=== PATIENT | male | born 1945 | race Caucasian/White ===

== ENCOUNTER 2023-05-13 13:01 | Observation (INO) ==
[2023-05-13 13:24] LABS: Appearance Urine Clear (Clear); Bilirubin Urine Negative (Negative); Blood Urine Negative (Negative); Color Urine Yellow; Glucose Urine UA Negative (Negative); Ketones Urine Negative (Negative); Leukocyte Esterase Urine Negative (Negative); Nitrite Urine Negative (Negative); Protein Urine Negative (Negative); Specific Gravity Urine 1.021 (1.000-1.030); Urobilinogen Urine Negative (Negative)
[2023-05-13 13:52] LABS: Basophils # (auto) 0.06 K/uL (0-0.2); Basophils % (auto) 0.7 %; Eosinophils # (auto) 0.14 K/uL (0-0.50); Eosinophils % (auto) 1.6 %; Hematocrit (blood only) 43.4 % (42.0-52.0); Hemoglobin 14.8 g/dl (14.0-18.0); Immature Granulocytes # (auto) 0.02 K/uL (0.01-0.20); Immature Granulocytes % (auto) 0.2 %; Lymphocytes # (auto) 1.96 K/uL (1.2-3.4); Lymphocytes % (auto) 23.1 %; Mean Corpuscular Hemoglobin 29.9 pg (25.0-34.0); Mean Corpuscular Hgb Conc 34.1 g/dL (32.0-36.0); Mean Corpuscular Volume 87.7 fL (80.0-100.0); Mean Platelet Volume 9.6 fL (9.4-12.4); Monocytes # (auto) 0.73 K/uL (0.11-0.59); Monocytes % (auto) 8.6 %; Neutrophils # (auto) 5.59 K/uL (1.40-6.50); Neutrophils % (auto) 65.8 %; Platelet Count 330 K/uL (130-400); RDW Coefficient of Variation 12.6 % (11.5-14.5); RDW Standard Deviation 40.2 fL (36.4-46.3); Red Blood Count 4.95 M/uL (4.70-6.10)
[2023-05-13 14:07] LABS: Alanine Aminotransferase 18 U/L (7-52); Albumin Globulin Ratio 1.4 (0.9-2); Albumin Level 4.2 gm/dl (3.4-5.0); Aspartate Aminotransferase 26 U/L (13-39); Bilirubin,Total 1.1 mg/dl (0.2-1.0); Blood Urea Nitrogen 19 mg/dl (6-23); Creatinine Clr Calc Pharmacy 57.2 ml/min; Globulin 2.9 gm/dl (2.5-4.0); Glucose 114 mg/dl (70-99(Fasting)); Sodium 136 mmol/L (136-145); Total Protein 7.1 gm/dl (6.0-8.3)
[2023-05-13 14:16] LABS: Alkaline Phosphatase 75 U/L (34-104); Anion Gap 7 (3-11); BUN Creatinine Ratio 16.2 (10-20); Calcium 9.4 mg/dl (8.6-10.3); Carbon Dioxide 24 mmol/L (21-32); Chloride 105 mmol/L (98-107); Est GFR (African American) 68.3 ml/min; Est GFR (Non-African American) 58.9 ml/min; Magnesium 1.3 mg/dl (1.7-2.4); Potassium 4.8 mmol/L (3.5-5.1)
[2023-05-13 14:22] LABS: Troponin I High Sensitivity 2.4 pg/ml (0-20)
[2023-05-13] MEDS ORDERED: MAGNESIUM SULFATE / D5W 1 GM/100 ML BAG IV STA (14:22)
--- NOTE | 2023-05-13 14:38 | XRay Report ---
SINGLE VIEW CHEST CLINICAL HISTORY: Change in mental status. FINDINGS: An AP, portable, upright chest radiograph is obtained. No prior studies are available for c omparison at the time of dictation. The heart is top normal for projection noting atherosclerotic adam cification of the thoracic aorta. There is an indeterminant fullness of the left hilum. There is elev ation of the right hemidiaphragm. Scarring/atelectasis is noted at the lung bases. No airspace consol idation or large pleural effusion is identified. No pneumothorax is seen. The skeletal structures are osteopenic. The bony thorax is grossly intact. IMPRESSION: 1. No acute cardiopulmonary abnormality is identified. 2. There is nonspecific fullness of the left hilum which may represent normal vascular structures. A contrast-enhanced chest CT is recommended to exclude underlying mass lesion or lymphadenopathy. ACT 112: Negative or not required by law. Electronically signed by: Zack Emery M.D. 05/13/2023 2:36 PM
--- NOTE | 2023-05-13 14:47 | CT Scan Report ---
CT SCAN OF THE BRAIN WITHOUT IV CONTRAST CLINICAL HISTORY: Change in mental status. COMPARISON STUDY: No priors. TECHNIQUE: Unenhanced axial CT scan of the brain is performed from the vertex to the skull base. A do se lowering technique was utilized adhering to the principles of ALARA. 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 There is no hemorrhage, mass effect, or evidence of acute territorial isc hemia by CT criteria. Sampson-white matter differentiation is preserved. No extra-axial fluid collection is seen. Ventricles, sulci, cisterns: Prominent secondary to involutional change. Intracranial vasculature: There is atherosclerotic calcification of the cavernous carotid and vertebr al arteries. Calvarium: Unremarkable. Sinuses and mastoids: The visualized paranasal sinuses are clear. There is trace right mastoid effusi on. The left mastoid air cells are well pneumatized. Orbits: The bony orbits are grossly intact. There are bilateral ocular lens implants. IMPRESSION: There is no hemorrhage, mass effect, or evidence of acute territorial ischemia by CT kellen real. ACT 112: Negative or not required by law. Electronically signed by: Zack Emery M.D. 05/13/2023 2:44 PM
--- NOTE | 2023-05-13 15:00 | Emergency Department Note ---
History of Present Illness General Chief complaint: Altered Mental Status Stated complaint: HALLUCINATIONS Time Seen by Provider: 05/13/23 13:52 History of Present Illness Maximum Pain Intensity: 0 This is a 78-year-old male presenting to the emergency department accompanied by his daughters for evaluation of change in mental status over the past several weeks. The patient lives in the [place] area and his a few months ago. Over the past several weeks the patient has been acting very odd and atypical from baseline. He is often describing seeing people either jogging on the road, or crawling into his mailbox. The patient describes these events very vividly in detail. He is able to walk through his logic and thinking process when these small people show up at his house. At times these people will sit in his garage, and crawl into the upholstery of his car. The patient does not have any recent fevers or chills. No illness or trauma. Sleep may be slightly changed from the time of his passing away. No recent medication changes. The patient states that the people that he is seeing and talking to are very friendly and do not threaten him or ask him to do things that are not safe. His daughters state the neighbor has seen him talking to people in the yard, when no one was there. He has approached the neighbor's house a few times asking for help with the small people. The patient did have MRI of his brain in [place] recently that showed senescent changes per the daughters. The daughters do seem quite reasonable and concerned. The patient himself offers no complaints. No pain. No infectious symptoms are reported. Home Medications Medication Instructions Recorded Confirmed Type ascorbic acid (vitamin C) 250 mg 0 mg PO DAILY 05/13/23 05/13/23 History tablet (Vitamin C) brimonidine 0.2 % eye drops 1 drp OPB TID 05/13/23 05/13/23 History cholecalciferol (vitamin D3) 25 25 mcg PO DAILY 05/13/23 05/13/23 History mcg (1,000 unit) tablet (Vitamin D3) dorzolamide 2 % eye drops 1 drp OPB TID 05/13/23 05/13/23 History dulaglutide 3 mg/0.5 mL 3 mg subcut WE 05/13/23 05/13/23 History subcutaneous pen injector (Trulicity) enalapril maleate 20 mg tablet 20 mg PO BID 05/13/23 05/13/23 History metformin 500 mg tablet 500 mg PO TID 05/13/23 05/13/23 History potassium chloride 20 mEq 20 meq PO DAILY 05/13/23 05/13/23 History tablet,extended release(part/cryst) (Klor-Con M) simvastatin 40 mg tablet 40 mg PO HS 05/13/23 05/13/23 History triamcinolone acetonide 0.1 % 1 applic topical DIRECTED PRN 05/13/23 05/13/23 History topical cream .Itching Allergies Allergy/AdvReac Type Severity Reaction Status Date / Time No Known Allergies Allergy Verified 05/13/23 17:15 Past Med/Surg History Medical History Glaucoma History of diverticulitis Hypertension T2DM (type 2 diabetes mellitus) Visual hallucinations Surgical History History of partial colectomy Social History (Updated 05/14/23 @ 10:46 by Hay Sanchez MD) Smoking Status: Former smoker Tobacco Type: Cigarettes Hx Alcohol Use: Yes Alcohol Intake Frequency: Monthly or Less Hx Substance Use: No Preferred Language: Singaporean Communication Ability: Effective Site Inspector Required: No Beliefs That Will Affect Care: None Current Living Situation: Alone current occupational status: employed 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 Vital signs stable. GENERAL: Elderly white male who is speaking in full sentences and appears in no acute distress. He is cooperative with the examination. HEAD: Normocephalic atraumatic. NECK: Supple without nuchal rigidity. No lymphadenopathy. No thyromegaly. Cervical spine is nontender. HEART: Regular rate and rhythm without murmurs gallops or rubs. LUNGS: Clear to auscultation bilaterally without wheezes, rales or rhonchi. No retractions or accessory muscle use. ABDOMEN: Positive normal bowel sounds x 4. Soft, nontender, without masses or organomegaly. No guarding or rebound tenderness. MUSCULOSKELETAL: No muscle atrophy, erythema, or edema noted. Full range of motion in all extremities. NEURO: Patient was alert and oriented to person place and time. CN II through XII grossly intact. GCS 15. SKIN: The skin was without rashes, erythema, edema, or bruising. Capillary refill less than 2 seconds. Course Administered Medications Discontinued Medications Brimonidine Tartrate (Brimonidine Tartrate 0.2% 5ml) 1 drops OPB TID JACKELIN Stop: 06/12/23 20:59 Last Admin: 05/14/23 08:06 Dose: 1 drops Documented By: Admin: 05/13/23 21:20 Dose: 1 drops Documented By: KAILEY Cyanocobalamin (Cyanocobalamin (B-12) 500 Mcg Tablet) 500 mcg PO QAM JACKELIN Stop: 06/13/23 08:59 Last Admin: 05/14/23 08:44 Dose: 500 mcg Documented By: LOUISA Dorzolamide HCl (Dorzolamide Hcl 2% Oph Soln 10 Ml Btl) 1 drops OPB TID JACKELIN Stop: 06/12/23 20:59 Last Admin: 05/14/23 08:07 Dose: 1 drops Documented By: Admin: 05/13/23 21:21 Dose: 1 drops Documented By: KAILEY Enalapril Maleate (Enalapril Maleate 10 Mg Tab) 20 mg PO BID JACKELIN Stop: 06/12/23 20:59 Last Admin: 05/14/23 08:06 Dose: 20 mg Documented By: Admin: 05/13/23 21:19 Dose: 20 mg Documented By: KAILEY Magnesium Sulfate/Dextrose (Magnesium Sulfate / D5w) 1 gm in 100 mls @ 100 mls/hr IV NOW STA Stop: 05/13/23 15:21 Last Infusion: 05/13/23 15:59 Dose: 0 mls/hr Documented By: Admin: 05/13/23 14:39 Dose: 100 mls/hr Documented By: KATE Magnesium Sulfate/Dextrose (Magnesium Sulfate / D5w) 1 gm in 100 mls @ 50 mls/hr IV Q2H JACKELIN Stop: 05/14/23 00:44 Last Infusion: 05/14/23 01:10 Dose: 0 mls/hr Documented By: Admin: 05/13/23 23:04 Dose: 50 mls/hr Documented By: Infusion: 05/13/23 23:04 Dose: 50 mls/hr Documented By: Admin: 05/13/23 21:37 Dose: 50 mls/hr Documented By: KAILEY Insulin Aspart (Insulin Aspart Per Unit Charge) 0 units SC ACHS JACKELIN Stop: 06/13/23 07:29 Last Admin: 05/14/23 13:23 Dose: Not Given Documented By: LOUISA Co-signed By: ZULEIMA Admin: 05/14/23 08:48 Dose: Not Given Documented By: LOUISA Co-signed By: JESSA Ioversol (Optiray 320 125ml) 117 ml IV ONCE ONE Stop: 05/13/23 15:19 Last Admin: 05/13/23 15:18 Dose: 117 ml Documented By: JUDI Magnesium Oxide (Magnesium Oxide 400 Mg Tab) 400 mg PO QAM JACKELIN Stop: 06/13/23 08:59 Last Admin: 05/14/23 08:44 Dose: 400 mg Documented By: LOUISA Simvastatin (Simvastatin 40 Mg Tab) 40 mg PO HS JACKELIN Stop: 06/12/23 20:59 Last Admin: 05/13/23 21:19 Dose: 40 mg Documented By: KAILEY Vitamin D (Cholecalciferol 1,000 Units 25 Mcg Tab) 1,000 units PO DAILY JACKELIN Stop: 06/13/23 08:59 Last Admin: 05/14/23 08:06 Dose: 1,000 units Documented By: LOUISA Medical Decision Making Differential Diagnosis Differential includes stroke, dementia versus delirium, infection, acute coronary syndrome, myocardial infarction, CVA, TIA, anemia, infection, pneumonia, UTI, pyelonephritis, poor nutrition, dehydration, electrolyte disturbance,hypoglycemia. Laboratory Data 05/13/23 13:36 05/13/23 13:36 Lab Results 05/13/23 05/13/23 05/13/23 Range/Units 13:36 13:36 13:36 WBC 8.50 (4.8-10.8) K/ul RBC 4.95 (4.70-6.10) M/uL Hgb 14.8 (14.0-18.0) g/dl Hct 43.4 (42.0-52.0) % MCV 87.7 (80.0-100.0) fL MCH 29.9 (25.0-34.0) pg MCHC 34.1 (32.0-36.0) g/dL RDW Std Deviation 40.2 (36.4-46.3) fL RDW Coeff of Lalito 12.6 (11.5-14.5) % Plt Count 330 (130-400) K/uL MPV 9.6 (9.4-12.4) fL Immature Gran % (Auto) 0.2 % Neut % (Auto) 65.8 % Lymph % (Auto) 23.1 % [place] % (Auto) 8.6 % Eos % (Auto) 1.6 % Baso % (Auto) 0.7 % Neut # (Auto) 5.59 (1.40-6.50) K/uL Lymph # (Auto) 1.96 (1.2-3.4) K/uL [place] # (Auto) 0.73 H (0.11-0.59) K/uL Eos # (Auto) 0.14 (0-0.50) K/uL Baso # (Auto) 0.06 (0-0.2) K/uL Immature Gran # (Auto) 0.02 (0.01-0.20) K/uL ESR (0-20) mm/hr Sodium 136 (136-145) mmol/L Potassium 4.8 (3.5-5.1) mmol/L Chloride 105 (98-107) mmol/L Carbon Dioxide 24 (21-32) mmol/L Anion Gap 7 (3-11) BUN 19 (6-23) mg/dl Creatinine 1.17 (0.6-1.4) mg/dl Est Cr Clr Drug Dosing 57.2 ml/min Est GFR ( Amer) 68.3 ml/min Est GFR (Non-Af Amer) 58.9 ml/min BUN/Creatinine Ratio 16.2 (10-20) Glucose 114 H (70-99(Fasting)) mg/dl POC Glucose (70-99) mg/dl Lactate (0.4-2.0) mmol/L Calcium 9.4 (8.6-10.3) mg/dl Phosphorus 2.9 (2.5-4.9) mg/dl Magnesium 1.3 L (1.7-2.4) mg/dl Total Bilirubin 1.1 H (0.2-1.0) mg/dl AST 26 (13-39) U/L ALT 18 (7-52) U/L Alkaline Phosphatase 75 (34-104) U/L Ammonia (18-72) umol/L Troponin I High Sens 2.4 (0-20) pg/ml C-Reactive Protein < 0.50 (0-0.5) mg/dl Total Protein 7.1 (6.0-8.3) gm/dl Albumin 4.2 (3.4-5.0) gm/dl Globulin 2.9 (2.5-4.0) gm/dl Albumin/Globulin Ratio 1.4 (0.9-2) Vitamin B12 (180-914) pg/ml Procalcitonin (0-0.5) ng/ml TSH (0.300-4.500) uIu/ml Ethyl Alcohol mg/dL (<10.0) mg/dl Adenovirus (PCR) (NotDetected) Anaplasma Smear See Comment B. pertussis DNA (PCR) (NotDetected) B.parapertussis DNA PCR (NotDetected) Lyme Disease IgG Ab Cancelled Lyme Disease IgM Ab Cancelled C. pneumoniae DNA (PCR) (NotDetected) Coronavirus OC43 (PCR) (NotDetected) Coronavirus HKU1 (PCR) (NotDetected) Coronavirus 229E (PCR) (NotDetected) SARS-CoV-2 (PCR) (NotDetected) Coronavirus NL63 (PCR) (NotDetected) Human Metapneumovir PCR (NotDetected) Influenza Type A (PCR) (NotDetected) Influenza Type B (PCR) (NotDetected) M. pneumoniae (PCR) (NotDetected) Parainfluenza 1 (PCR) (NotDetected) Parainfluenza 2 (PCR) (NotDetected) Parainfluenza 3 (PCR) (NotDetected) Parainfluenza 4 (PCR) (NotDetected) RSV (PCR) (NotDetected) Entero/Rhino (PCR) (NotDetected) 05/13/23 05/13/23 05/13/23 Range/Units 13:36 13:55 14:05 WBC (4.8-10.8) K/ul RBC (4.70-6.10) M/uL Hgb (14.0-18.0) g/dl Hct (42.0-52.0) % MCV (80.0-100.0) fL MCH (25.0-34.0) pg MCHC (32.0-36.0) g/dL RDW Std Deviation (36.4-46.3) fL RDW Coeff of Lalito (11.5-14.5) % Plt Count (130-400) K/uL MPV (9.4-12.4) fL Immature Gran % (Auto) % Neut % (Auto) % Lymph % (Auto) % [place] % (Auto) % Eos % (Auto) % Baso % (Auto) % Neut # (Auto) (1.40-6.50) K/uL Lymph # (Auto) (1.2-3.4) K/uL [place] # (Auto) (0.11-0.59) K/uL Eos # (Auto) (0-0.50) K/uL Baso # (Auto) (0-0.2) K/uL Immature Gran # (Auto) (0.01-0.20) K/uL ESR 9 (0-20) mm/hr Sodium (136-145) mmol/L Potassium (3.5-5.1) mmol/L Chloride (98-107) mmol/L Carbon Dioxide (21-32) mmol/L Anion Gap (3-11) BUN (6-23) mg/dl Creatinine (0.6-1.4) mg/dl Est Cr Clr Drug Dosing ml/min Est GFR ( Amer) ml/min Est GFR (Non-Af Amer) ml/min BUN/Creatinine Ratio (10-20) Glucose (70-99(Fasting)) mg/dl POC Glucose 96 (70-99) mg/dl Lactate (0.4-2.0) mmol/L Calcium (8.6-10.3) mg/dl Phosphorus (2.5-4.9) mg/dl Magnesium (1.7-2.4) mg/dl Total Bilirubin (0.2-1.0) mg/dl AST (13-39) U/L ALT (7-52) U/L Alkaline Phosphatase (34-104) U/L Ammonia (18-72) umol/L Troponin I High Sens (0-20) pg/ml C-Reactive Protein (0-0.5) mg/dl Total Protein (6.0-8.3) gm/dl Albumin (3.4-5.0) gm/dl Globulin (2.5-4.0) gm/dl Albumin/Globulin Ratio (0.9-2) Vitamin B12 (180-914) pg/ml Procalcitonin (0-0.5) ng/ml TSH (0.300-4.500) uIu/ml Ethyl Alcohol mg/dL (<10.0) mg/dl Adenovirus (PCR) Not Detected (NotDetected) Anaplasma Smear B. pertussis DNA (PCR) Not Detected (NotDetected) B.parapertussis DNA PCR Not Detected (NotDetected) Lyme Disease IgG Ab Lyme Disease IgM Ab C. pneumoniae DNA (PCR) Not Detected (NotDetected) Coronavirus OC43 (PCR) Not Detected (NotDetected) Coronavirus HKU1 (PCR) Not Detected (NotDetected) Coronavirus 229E (PCR) Not Detected (NotDetected) SARS-CoV-2 (PCR) Not Detected (NotDetected) Coronavirus NL63 (PCR) Not Detected (NotDetected) Human Metapneumovir PCR Not Detected (NotDetected) Influenza Type A (PCR) Not Detected (NotDetected) Influenza Type B (PCR) Not Detected (NotDetected) M. pneumoniae (PCR) Not Detected (NotDetected) Parainfluenza 1 (PCR) Not Detected (NotDetected) Parainfluenza 2 (PCR) Not Detected (NotDetected) Parainfluenza 3 (PCR) Not Detected (NotDetected) Parainfluenza 4 (PCR) Not Detected (NotDetected) RSV (PCR) Not Detected (NotDetected) Entero/Rhino (PCR) Not Detected (NotDetected) 05/13/23 05/13/23 05/13/23 Range/Units 14:20 14:35 15:25 WBC (4.8-10.8) K/ul RBC (4.70-6.10) M/uL Hgb (14.0-18.0) g/dl Hct (42.0-52.0) % MCV (80.0-100.0) fL MCH (25.0-34.0) pg MCHC (32.0-36.0) g/dL RDW Std Deviation (36.4-46.3) fL RDW Coeff of Lalito (11.5-14.5) % Plt Count (130-400) K/uL MPV (9.4-12.4) fL Immature Gran % (Auto) % Neut % (Auto) % Lymph % (Auto) % [place] % (Auto) % Eos % (Auto) % Baso % (Auto) % Neut # (Auto) (1.40-6.50) K/uL Lymph # (Auto) (1.2-3.4) K/uL [place] # (Auto) (0.11-0.59) K/uL Eos # (Auto) (0-0.50) K/uL Baso # (Auto) (0-0.2) K/uL Immature Gran # (Auto) (0.01-0.20) K/uL ESR (0-20) mm/hr Sodium (136-145) mmol/L Potassium (3.5-5.1) mmol/L Chloride (98-107) mmol/L Carbon Dioxide (21-32) mmol/L Anion Gap (3-11) BUN (6-23) mg/dl Creatinine (0.6-1.4) mg/dl Est Cr Clr Drug Dosing ml/min Est GFR ( Amer) ml/min Est GFR (Non-Af Amer) ml/min BUN/Creatinine Ratio (10-20) Glucose (70-99(Fasting)) mg/dl POC Glucose (70-99) mg/dl Lactate 1.2 (0.4-2.0) mmol/L Calcium (8.6-10.3) mg/dl Phosphorus (2.5-4.9) mg/dl Magnesium (1.7-2.4) mg/dl Total Bilirubin (0.2-1.0) mg/dl AST (13-39) U/L ALT (7-52) U/L Alkaline Phosphatase (34-104) U/L Ammonia 16.0 L (18-72) umol/L Troponin I High Sens (0-20) pg/ml C-Reactive Protein (0-0.5) mg/dl Total Protein (6.0-8.3) gm/dl Albumin (3.4-5.0) gm/dl Globulin (2.5-4.0) gm/dl Albumin/Globulin Ratio (0.9-2) Vitamin B12 (180-914) pg/ml Procalcitonin (0-0.5) ng/ml TSH (0.300-4.500) uIu/ml Ethyl Alcohol mg/dL < 10.0 (<10.0) mg/dl Adenovirus (PCR) (NotDetected) Anaplasma Smear B. pertussis DNA (PCR) (NotDetected) B.parapertussis DNA PCR (NotDetected) Lyme Disease IgG Ab Lyme Disease IgM Ab C. pneumoniae DNA (PCR) (NotDetected) Coronavirus OC43 (PCR) (NotDetected) Coronavirus HKU1 (PCR) (NotDetected) Coronavirus 229E (PCR) (NotDetected) SARS-CoV-2 (PCR) (NotDetected) Coronavirus NL63 (PCR) (NotDetected) Human Metapneumovir PCR (NotDetected) Influenza Type A (PCR) (NotDetected) Influenza Type B (PCR) (NotDetected) M. pneumoniae (PCR) (NotDetected) Parainfluenza 1 (PCR) (NotDetected) Parainfluenza 2 (PCR) (NotDetected) Parainfluenza 3 (PCR) (NotDetected) Parainfluenza 4 (PCR) (NotDetected) RSV (PCR) (NotDetected) Entero/Rhino (PCR) (NotDetected) 05/13/23 05/13/23 05/13/23 Range/Units 15:25 15:25 15:25 WBC (4.8-10.8) K/ul RBC (4.70-6.10) M/uL Hgb (14.0-18.0) g/dl Hct (42.0-52.0) % MCV (80.0-100.0) fL MCH (25.0-34.0) pg MCHC (32.0-36.0) g/dL RDW Std Deviation (36.4-46.3) fL RDW Coeff of Lalito (11.5-14.5) % Plt Count (130-400) K/uL MPV (9.4-12.4) fL Immature Gran % (Auto) % Neut % (Auto) % Lymph % (Auto) % [place] % (Auto) % Eos % (Auto) % Baso % (Auto) % Neut # (Auto) (1.40-6.50) K/uL Lymph # (Auto) (1.2-3.4) K/uL [place] # (Auto) (0.11-0.59) K/uL Eos # (Auto) (0-0.50) K/uL Baso # (Auto) (0-0.2) K/uL Immature Gran # (Auto) (0.01-0.20) K/uL ESR (0-20) mm/hr Sodium (136-145) mmol/L Potassium (3.5-5.1) mmol/L Chloride (98-107) mmol/L Carbon Dioxide (21-32) mmol/L Anion Gap (3-11) BUN (6-23) mg/dl Creatinine (0.6-1.4) mg/dl Est Cr Clr Drug Dosing ml/min Est GFR ( Amer) ml/min Est GFR (Non-Af Amer) ml/min BUN/Creatinine Ratio (10-20) Glucose (70-99(Fasting)) mg/dl POC Glucose (70-99) mg/dl Lactate (0.4-2.0) mmol/L Calcium (8.6-10.3) mg/dl Phosphorus (2.5-4.9) mg/dl Magnesium (1.7-2.4) mg/dl Total Bilirubin (0.2-1.0) mg/dl AST (13-39) U/L ALT (7-52) U/L Alkaline Phosphatase (34-104) U/L Ammonia (18-72) umol/L Troponin I High Sens (0-20) pg/ml C-Reactive Protein (0-0.5) mg/dl Total Protein (6.0-8.3) gm/dl Albumin (3.4-5.0) gm/dl Globulin (2.5-4.0) gm/dl Albumin/Globulin Ratio (0.9-2) Vitamin B12 276 (180-914) pg/ml Procalcitonin < 0.05 (0-0.5) ng/ml TSH (0.300-4.500) uIu/ml Ethyl Alcohol mg/dL (<10.0) mg/dl Adenovirus (PCR) (NotDetected) Anaplasma Smear B. pertussis DNA (PCR) (NotDetected) B.parapertussis DNA PCR (NotDetected) Lyme Disease IgG Ab Negative Lyme Disease IgM Ab Negative C. pneumoniae DNA (PCR) (NotDetected) Coronavirus OC43 (PCR) (NotDetected) Coronavirus HKU1 (PCR) (NotDetected) Coronavirus 229E (PCR) (NotDetected) SARS-CoV-2 (PCR) (NotDetected) Coronavirus NL63 (PCR) (NotDetected) Human Metapneumovir PCR (NotDetected) Influenza Type A (PCR) (NotDetected) Influenza Type B (PCR) (NotDetected) M. pneumoniae (PCR) (NotDetected) Parainfluenza 1 (PCR) (NotDetected) Parainfluenza 2 (PCR) (NotDetected) Parainfluenza 3 (PCR) (NotDetected) Parainfluenza 4 (PCR) (NotDetected) RSV (PCR) (NotDetected) Entero/Rhino (PCR) (NotDetected) 05/13/23 Range/Units 15:25 WBC (4.8-10.8) K/ul RBC (4.70-6.10) M/uL Hgb (14.0-18.0) g/dl Hct (42.0-52.0) % MCV (80.0-100.0) fL MCH (25.0-34.0) pg MCHC (32.0-36.0) g/dL RDW Std Deviation (36.4-46.3) fL RDW Coeff of Lalito (11.5-14.5) % Plt Count (130-400) K/uL MPV (9.4-12.4) fL Immature Gran % (Auto) % Neut % (Auto) % Lymph % (Auto) % [place] % (Auto) % Eos % (Auto) % Baso % (Auto) % Neut # (Auto) (1.40-6.50) K/uL Lymph # (Auto) (1.2-3.4) K/uL [place] # (Auto) (0.11-0.59) K/uL Eos # (Auto) (0-0.50) K/uL Baso # (Auto) (0-0.2) K/uL Immature Gran # (Auto) (0.01-0.20) K/uL ESR (0-20) mm/hr Sodium (136-145) mmol/L Potassium (3.5-5.1) mmol/L Chloride (98-107) mmol/L Carbon Dioxide (21-32) mmol/L Anion Gap (3-11) BUN (6-23) mg/dl Creatinine (0.6-1.4) mg/dl Est Cr Clr Drug Dosing ml/min Est GFR ( Amer) ml/min Est GFR (Non-Af Amer) ml/min BUN/Creatinine Ratio (10-20) Glucose (70-99(Fasting)) mg/dl POC Glucose (70-99) mg/dl Lactate (0.4-2.0) mmol/L Calcium (8.6-10.3) mg/dl Phosphorus (2.5-4.9) mg/dl Magnesium (1.7-2.4) mg/dl Total Bilirubin (0.2-1.0) mg/dl AST (13-39) U/L ALT (7-52) U/L Alkaline Phosphatase (34-104) U/L Ammonia (18-72) umol/L Troponin I High Sens (0-20) pg/ml C-Reactive Protein (0-0.5) mg/dl Total Protein (6.0-8.3) gm/dl Albumin (3.4-5.0) gm/dl Globulin (2.5-4.0) gm/dl Albumin/Globulin Ratio (0.9-2) Vitamin B12 (180-914) pg/ml Procalcitonin (0-0.5) ng/ml TSH 0.588 (0.300-4.500) uIu/ml Ethyl Alcohol mg/dL (<10.0) mg/dl Adenovirus (PCR) (NotDetected) Anaplasma Smear B. pertussis DNA (PCR) (NotDetected) B.parapertussis DNA PCR (NotDetected) Lyme Disease IgG Ab Lyme Disease IgM Ab C. pneumoniae DNA (PCR) (NotDetected) Coronavirus OC43 (PCR) (NotDetected) Coronavirus HKU1 (PCR) (NotDetected) Coronavirus 229E (PCR) (NotDetected) SARS-CoV-2 (PCR) (NotDetected) Coronavirus NL63 (PCR) (NotDetected) Human Metapneumovir PCR (NotDetected) Influenza Type A (PCR) (NotDetected) Influenza Type B (PCR) (NotDetected) M. pneumoniae (PCR) (NotDetected) Parainfluenza 1 (PCR) (NotDetected) Parainfluenza 2 (PCR) (NotDetected) Parainfluenza 3 (PCR) (NotDetected) Parainfluenza 4 (PCR) (NotDetected) RSV (PCR) (NotDetected) Entero/Rhino (PCR) (NotDetected) Imaging Data Radiologist's Impression: Chest X-Ray 05/13/23 13:52 SINGLE VIEW CHEST CLINICAL HISTORY: Change in mental status. FINDINGS: An AP, portable, upright chest radiograph is obtained. No prior studies are available for comparison at the time of dictation. The heart is top normal for projection noting atherosclerotic calcification of the thoracic aorta. There is an indeterminant fullness of the left hilum. There is elevation of the right hemidiaphragm. Scarring/atelectasis is noted at the lung bases. No airspace consolidation or large pleural effusion is identified. No pneumothorax is seen. The skeletal structures are osteopenic. The bony thorax is grossly intact. IMPRESSION: 1. No acute cardiopulmonary abnormality is identified. 2. There is nonspecific fullness of the left hilum which may represent normal vascular structures. A contrast-enhanced chest CT is recommended to exclude underlying mass lesion or lymphadenopathy. ACT 112: Negative or not required by law. Electronically signed by: Zack Emery M.D. 05/13/2023 2:[address] 05/13/23 13:52 CT SCAN OF THE BRAIN WITHOUT IV CONTRAST CLINICAL HISTORY: Change in mental status. COMPARISON STUDY: No priors. TECHNIQUE: Unenhanced axial CT scan of the brain is performed from the vertex to the skull base. A dose lowering technique was utilized adhering to the principles of ALARA. CT DOSE: 547.75 mGy.cm FINDINGS: Brain parenchyma: There is age-related involutional change noting mild subcortical and periventricular microangiopathic disease. There is no hemorrhage, mass effect, or evidence of acute territorial ischemia by CT criteria. Sampson-white matter differentiation is preserved. No extra-axial fluid collection is seen. Ventricles, sulci, cisterns: Prominent secondary to involutional change. Intracranial vasculature: There is atherosclerotic calcification of the cavernous carotid and vertebral arteries. Calvarium: Unremarkable. Sinuses and mastoids: The visualized paranasal sinuses are clear. There is trace right mastoid effusion. The left mastoid air cells are well pneumatized. Orbits: The bony orbits are grossly intact. There are bilateral ocular lens implants. IMPRESSION: There is no hemorrhage, mass effect, or evidence of acute territorial ischemia by CT criteria. ACT 112: Negative or not required by law. Electronically signed by: Zack Emery M.D. 05/13/2023 2:44 PM Chest CTA 05/13/23 14:43 CT ANGIOGRAM OF THE CHEST CLINICAL HISTORY: Abnormal chest x-ray. Fullness of left hilum. COMPARISON STUDY: Chest x-ray dated 05/13/2023. TECHNIQUE: Following the IV administration of 117 cc of Optiray 320, CT angiogram of the chest was performed from the upper abdomen to the thoracic inlet utilizing the pulmonary embolus protocol. Images are reviewed in the axial, sagittal, and coronal planes. 3-D MIPS images are created and assessed. IV contrast was administered without complication. A dose lowering technique was utilized adhering to the principles of ALARA. CT DOSE: 872.20 mGy.cm FINDINGS: Thyroid: Imaged portions of the thyroid gland are normal in size and attenuation. Thoracic aorta: There is atherosclerotic calcification of the thoracic aorta, which is normal in caliber and demonstrates standard 3-vessel arch anatomy. No dissection is seen. Pulmonary vasculature: The pulmonary trunk is normal in caliber. There are no filling defects identified in main, lobar, or segmental pulmonary branches to suggest pulmonary embolus. Heart: The heart is normal in size and without pericardial effusion. There are coronary artery calcifications. Lungs and pleural spaces: There is mild emphysema. A 9 mm ovoid pulmonary nodule is seen in the left upper lobe on image #130. This appears to contain macroscopic fat and may represent a hamartoma. No air space consolidation typical for pneumonia or pleural effusion is identified. The trachea and central airways are clear. No left hilar lesion is identified as questioned by CT. There are calcified pleural plaques seen bilaterally. One of these is located human resource manager ior to the left hilum and this may correspond to part of the abnormality seen by chest x-ray. A 7 mm irregular nodular focus is seen in the right upper lobe along the major fissure on image #162. Scattered foci of parenchymal scarring are seen throughout both lungs. Mediastinum: There is no mediastinal lymphadenopathy. Tiara: Clear. Axillae: There is no axillary lymphadenopathy. Upper abdomen: Cholecystectomy clips are noted. An indeterminate 9 mm nodule arises from the upper pole of the right kidney on image #19. Skeletal structures: The skeletal structures are osteopenic. No lytic or blastic bony lesions are seen. Soft tissues: There is a 8.5 cm lipoma in the subcutaneous soft tissues of the left upper back. A 2.6 cm sebaceous cyst is seen in the presternal soft tissues. IMPRESSION: 1. There is no evidence of pulmonary embolus in the main, lobar, or segmental pulmonary arteries. 2. Calcified pleural plaques are seen bilaterally, left greater than right. This is typical for asbestos-related pleural disease. 3. There is no left hilar abnormality. The radiographic finding likely corresponds to prominent vascular structures, and may also represent one of the posterior pleural plaques at the level of the hilum. 4. Emphysema. 5. There is no airspace consolidation or pleural effusion. 6. There is a 9 mm ovoid pulmonary nodule in the left upper lobe and a 7 mm irregular nodular opacity in the right upper lobe. These are pathologically indeterminant and follow-up is recommended as per the Fleischner criteria. See below. 7. There is a 9 mm indeterminate lesion arising from the upper pole of the right kidney. This can also be reassessed at follow-up. 8. Additional findings as above. Please refer to below summary of Fleischner criteria recommendations for follow- up of incidental CT nodules (Camron Garner, Guidelines for management of small pulmonary nodules detected on CT scans: A statement from the Fleischner Society, Radiology 237: [phone].) SOLID NODULES Solitary nodule size: <6 mm * low risk patients: no follow-up needed * high risk patients: optional CT at 12 months Solitary nodule size: 6-8 mm * low risk patients: follow-up at 6-12 months, then consider further follow-up at 18-24 months * high risk patients: initial follow-up CT at 6-12 months and then at 18-24 months if no change Solitary nodule size: >8 mm * either low or high risk patients - consider follow-up CT at 3 months, and/or CT-PET, and/or biopsy Multiple nodules size: <6 mm * low risk patients: no routine follow-up * high risk patients: optional CT at 12 months Multiple nodules size: 6-8 mm * low risk patients: follow-up at 3-6 months, then consider further follow-up at 18-24 months * high risk patients: follow-up at 3-6 months, then at 18-24 months if no change Multiple nodules size: >8 mm * low risk patients: follow-up at 3-6 months, then consider further follow-up at 18-24 months * high risk patients: follow-up at 3-6 months, then at 18-24 months if no change Note: newly detected indeterminate nodule in persons 35 years of age or older. * low risk patients: minimal or absent history of smoking and/or other known risk factors * high risk patients: history of smoking or of other known risk factors (e.g. first degree relative with lung cancer, or exposure to asbestos, radon, uranium) * if a nodule up to 8 mm is partly solid or is ground glass further follow-up is required after 24 months to exclude possible slow growing adenocarcinoma (RADHA) SUBSOLID NODULES Solitary pure ground-glass nodule * nodule size <6 mm - no CT follow-up required * nodule size >=6 mm - follow-up CT at 6-12 months, then every 2 years until 5 years Solitary part-solid nodule * nodule size <6 mm - no CT follow-up required * nodule size >=6 mm - follow-up CT at 3-6 months. If unchanged, and solid component remains <6 mm, then annual follow-up for 5 years Multiple subsolid nodules * nodule size <6 mm - follow-up CT at 3-6 months, consider further follow-up at 2 and 4 years if stable * nodule size >=6 mm - follow-up CT at 3-6 months, subsequent management based on the most suspicious nodule(s) ACT 112: Positive. There are findings on this exam that require communication between the performing entity and the patient following Patient Test Result Information Act ([place] Act 112) guidelines. Electronically signed by: Zack Emery M.D. 05/13/2023 3:46 PM MDM Narrative Physical exam and history were performed. Nursing notes, EMR, and Medication List were personally reviewed. No social concerns were identified as barriers to patients care. Patient appears to have altered mental status with visual hallucinations. IV access was established and labs were obtained. CT scan of the head was performed and chest x-ray was gathered. An order was placed for continuous cardiac monitoring. The monitor shows a rate of 71 with normal sinus rhythm. Patient's blood work is as above and was reviewed. He does not have a significantly elevated white blood cell count or gross anemia. Magnesium is low and this was repleted through the IV. Transaminases are not diagnostic. Bio fire negative. Urine without evidence of infection. Lactic negative with blood cultures pending. X-ray may show some abnormal left-sided findings and CT scan of the head and CT scan of the chest were reviewed by myself and radiology. CT scan of the head does not show obvious acute findings. Chest is with possible asbestos related disease as there are several pleural lesions and undifferentiated pulmonary nodules. I did spend a significant time with family. The patient is having very vivid hallucinations, which are very real to him. It is unsure if he has had underlying dementia and this is worsening, or if this is a true delirium. The patient's did pass away a few months ago, and the may have been covering some of the symptoms for several months or years. Family is now aware how bad things are and are concerned. Overall the patient does not appear well for discharge home. Case was discussed with the on-call hospitalist team who agreed to evaluate him here in the ER. Please see their dictation for further patient course, plan, disposition. The chart was completed utilizing [employer] Speech Voice Recognition Software. Grammatical errors, random word insertions, pronoun errors, and incomplete sentences are an occasional consequence of this system due to software limita tions, ambient noise, and hardware issues. Any formal questions or concerns about the content, text, or information contained within the body of this dictation should be directly addressed to the provider for clarification. . Impression & Plan Altered mental status, Visual hallucinations, Low blood magnesium, Abnormal CT scan of lung Discharge Plan Visit Data Chief Complaint: Altered Mental Status Stated Complaint: HALLUCINATIONS ED Provider: Pierre Patel ED Midlevel Provider: Colt Worrell Discharge Problem: Altered mental status, Visual hallucinations, Low blood magnesium, Abnormal CT scan of lung Patient Disposition: Admitted As Inpatient Discharge Instructions Interventions: ED Discharge Assessment Last Done: 05/13/23 19:56
[2023-05-13] MEDS ORDERED: OPTIRAY 320 125ml IV ONE (15:18)
--- NOTE | 2023-05-13 15:48 | CT Scan Report ---
CT ANGIOGRAM OF THE CHEST CLINICAL HISTORY: Abnormal chest x-ray. Fullness of left hilum. COMPARISON STUDY: Chest x-ray dated 05/13/2023. TECHNIQUE: Following the IV administration of 117 cc of Optiray 320, CT angiogram of the chest was pe rformed from the upper abdomen to the thoracic inlet utilizing the pulmonary embolus protocol. Images are reviewed in the axial, sagittal, and coronal planes. 3-D MIPS images are created and assessed. I V contrast was administered without complication. A dose lowering technique was utilized adhering to the principles of ALARA. CT DOSE: 872.20 mGy.cm FINDINGS: Thyroid: Imaged portions of the thyroid gland are normal in size and attenuation. Thoracic aorta: There is atherosclerotic calcification of the thoracic aorta, which is normal in ania armond and demonstrates standard 3-vessel arch anatomy. No dissection is seen. Pulmonary vasculature: The pulmonary trunk is normal in caliber. There are no filling defects identif ied in main, lobar, or segmental pulmonary branches to suggest pulmonary embolus. Heart: The heart is normal in size and without pericardial effusion. There are coronary artery calcif ications. Lungs and pleural spaces: There is mild emphysema. A 9 mm ovoid pulmonary nodule is seen in the left upper lobe on image #130. This appears to contain macroscopic fat and may represent a hamartoma. No a ir space consolidation typical for pneumonia or pleural effusion is identified. The trachea and centr al airways are clear. No left hilar lesion is identified as questioned by CT. There are calcified ple ural plaques seen bilaterally. One of these is located posterior to the left hilum and this may corre spond to part of the abnormality seen by chest x-ray. A 7 mm irregular nodular focus is seen in the r ight upper lobe along the major fissure on image #162. Scattered foci of parenchymal scarring are see n throughout both lungs. Mediastinum: There is no mediastinal lymphadenopathy. Tiara: Clear. Axillae: There is no axillary lymphadenopathy. Upper abdomen: Cholecystectomy clips are noted. An indeterminate 9 mm nodule arises from the upper po le of the right kidney on image #19. Skeletal structures: The skeletal structures are osteopenic. No lytic or blastic bony lesions are see n. Soft tissues: There is a 8.5 cm lipoma in the subcutaneous soft tissues of the left upper back. A 2.6 cm sebaceous cyst is seen in the presternal soft tissues. IMPRESSION: 1. There is no evidence of pulmonary embolus in the main, lobar, or segmental pulmonary arteries. 2. Calcified pleural plaques are seen bilaterally, left greater than right. This is typical for asbes tos-related pleural disease. 3. There is no left hilar abnormality. The radiographic finding likely corresponds to prominent vascu lar structures, and may also represent one of the posterior pleural plaques at the level of the hilum . 4. Emphysema. 5. There is no airspace consolidation or pleural effusion. 6. There is a 9 mm ovoid pulmonary nodule in the left upper lobe and a 7 mm irregular nodular opacity in the right upper lobe. These are pathologically indeterminant and follow-up is recommended as per the Fleischner criteria. See below. 7. There is a 9 mm indeterminate lesion arising from the upper pole of the right kidney. This can als o be reassessed at follow-up. 8. Additional findings as above. Please refer to below summary of Fleischner criteria recommendations for follow-up of incidental CT n odules (Camron Garner, Guidelines for management of small pulmonary nodules detected on CT scans: A sta tement from the Fleischner Society, Radiology 237: [phone].) SOLID NODULES Solitary nodule size: <6 mm * low risk patients: no follow-up needed * high risk patients: optional CT at 12 months Solitary nodule size: 6-8 mm * low risk patients: follow-up at 6-12 months, then consider further follow-up at 18-24 months * high risk patients: initial follow-up CT at 6-12 months and then at 18-24 months if no change Solitary nodule size: >8 mm * either low or high risk patients - consider follow-up CT at 3 months, and/or CT-PET, and/or biopsy Multiple nodules size: <6 mm * low risk patients: no routine follow-up * high risk patients: optional CT at 12 months Multiple nodules size: 6-8 mm * low risk patients: follow-up at 3-6 months, then consider further follow-up at 18-24 months * high risk patients: follow-up at 3-6 months, then at 18-24 months if no change Multiple nodules size: >8 mm * low risk patients: follow-up at 3-6 months, then consider further follow-up at 18-24 months * high risk patients: follow-up at 3-6 months, then at 18-24 months if no change Note: newly detected indeterminate nodule in persons 35 years of age or older. * low risk patients: minimal or absent history of smoking and/or other known risk factors * high risk patients: history of smoking or of other known risk factors (e.g. first degree relative with lung cancer, or exposure to asbestos, radon, uranium) * if a nodule up to 8 mm is partly solid or is ground glass further follow-up is required after 24 m onths to exclude possible slow growing adenocarcinoma (RADHA) SUBSOLID NODULES Solitary pure ground-glass nodule * nodule size <6 mm - no CT follow-up required * nodule size >=6 mm - follow-up CT at 6-12 months, then every 2 years until 5 years Solitary part-solid nodule * nodule size <6 mm - no CT follow-up required * nodule size >=6 mm - follow-up CT at 3-6 months. If unchanged, and solid component remains <6 mm, then annual follow-up for 5 years Multiple subsolid nodules * nodule size <6 mm - follow-up CT at 3-6 months, consider further follow-up at 2 and 4 years if sta ble * nodule size >=6 mm - follow-up CT at 3-6 months, subsequent management based on the most suspiciou s nodule(s) ACT 112: Positive. There are findings on this exam that require communication between the performing entity and the patient following Patient Test Result Information Act ([place] Act 112) guidelines. Electronically signed by: Zack Emery M.D. 05/13/2023 3:46 PM
[2023-05-13 15:56] LABS: Adenovirus PCR Not Detected (NotDetected); Bordetella parapertussis PCR Not Detected (NotDetected); Bordetella pertussis PCR Not Detected (NotDetected); Chlamydia pneumoniae PCR Not Detected (NotDetected); Coronavirus 229E PCR Not Detected (NotDetected); Coronavirus CoV-2 (COVID19)PCR Not Detected (NotDetected); Coronavirus HKU1 PCR Not Detected (NotDetected); Coronavirus NL63 PCR Not Detected (NotDetected); Coronavirus OC43PCR Not Detected (NotDetected); Human Metapneumovirus PCR Not Detected (NotDetected); Influenza A PCR Not Detected (NotDetected); Influenza B PCR Not Detected (NotDetected); Mycoplasma pneumoniae PCR Not Detected (NotDetected); Parainfluenza Virus 1 PCR Not Detected (NotDetected); Parainfluenza Virus 2 PCR Not Detected (NotDetected); Parainfluenza Virus 3 PCR Not Detected (NotDetected); Parainfluenza Virus 4 PCR Not Detected (NotDetected); Respiratory Syncytial VirusPCR Not Detected (NotDetected); Rhinovirus/Enterovirus PCR Not Detected (NotDetected)
[2023-05-13 16:22] LABS: Lyme Ab IgG w/WB Rflx Negative (Negative); Lyme Ab IgM w/WB Rflx Negative (Negative)
--- NOTE | 2023-05-13 16:57 | History & Physical Report ---
Date of Service May 13, 2023 Assessment & Plan (1) Visual hallucinations: Plan: Suspect Lewy body dementia - due to lack of findings of alternative cause and his reasoning is also significantly impaired HIM request for brain MRI at [facility] Will hold off antipsychotics to allow neurology evaluation. 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 Follow up PCP regarding 9mm lesion upper pole right kidney (3) Low blood magnesium: Plan: Mg level 1.3 Mg sulfate 1g IV given in ER, additional 2g IV, repeat with AM labs (4) Hypertension: Plan: No longer taking carvedilol - making excuse he needs to order it from another pharmacy therefore has not picked it up from December but suspect he is confab ulating a reason Will hold off restarting currently for serial BP measurements Continue enalapril (5) T2DM (type 2 diabetes mellitus): Plan: Regular diet Home meds metformin and Trulicity Metformin on hold due to iodinated contrast given Family may bring in Trulicity tomorrow as due this today In the mean time will just use Novolog for correction if needed HbA1C with AM labs Plan VTE Prophylaxis - low risk Diet - regular Disposition - observation med/surg Admission and Anticipated Discharge Date Admission Date: May 13, 2023 History of Present Illness Chief Complaint: Visual hallucinations Primary Care Provider: Simon Gutiérrez is a 78 year old male who presents to the ER on advice of his daughters due to visual hallucinations. He reports 2-3 year of seeing things that aren't there when he is driving such as a girl at the side of the road that then turns out to be a sign post. He recognizes this as something that is not truly there. 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 He does not feel this impairs his driving as he doesn't think he would swerve to the other side of the road if he saw something that wasn't there and this has been going on for so long that it has never been an issue. More recently he report he has been driving children in the back of his car. His daughters note he has only mentioned this since his in February. These are much more bizarre stories such as children hiding in post boxes and no one else has seen these children in the car as when his granddaughter went to look they would hide underneath the upholstery. He is adamant these children are real and does not recognize and is unable to reason with regarding the bizarre nature of these stories. When trying to reason with him that we do not believe these children are real he is adamant they are because he can see them and is talking to them. He recognizes he also talks to people sometimes that other people cannot see them but again cannot be reasoned with that these may be hallucinations or at least our concerns that they are. Regarding his eye sight his daughter is an anthropology department chair and other than a "squiggle" at the back of his retina which has been checked at by [facility] as not thought to be a problem his eye sight is excellent. He denies any history of migraines, seizures, dementia (short term memory loss), alcohol, illicit drugs, narcolepsy, depression or anxiety. After his in February he denies any significant change in his sleep or eating/drinking. He did do everything with his but doesn't think he is getting out less or depressed. He actually feels he is seeing his family more which has been a good thing. Allergies Allergy/AdvReac Type Severity Reaction Status Date / Time No Known Allergies Allergy Verified 05/13/23 17:15 Home Medications Medication Instructions Recorded Confirmed Type ascorbic acid (vitamin C) 250 mg 0 mg PO DAILY 05/13/23 05/13/23 History tablet (Vitamin C) brimonidine 0.2 % eye drops 1 drp OPB TID 05/13/23 05/13/23 History cholecalciferol (vitamin D3) 25 25 mcg PO DAILY 05/13/23 05/13/23 History mcg (1,000 unit) tablet (Vitamin D3) dorzolamide 2 % eye drops 1 drp OPB TID 05/13/23 05/13/23 History dulaglutide 3 mg/0.5 mL 3 mg subcut WE 05/13/23 05/13/23 History subcutaneous pen injector (Trulicity) enalapril maleate 20 mg tablet 20 mg PO BID 05/13/23 05/13/23 History metformin 500 mg tablet 500 mg PO TID 05/13/23 05/13/23 History potassium chloride 20 mEq 20 meq PO DAILY 05/13/23 05/13/23 History tablet,extended release(part/cryst) (Puja Qunitana) simvastatin 40 mg tablet 40 mg PO HS 05/13/23 05/13/23 History triamcinolone acetonide 0.1 % 1 applic topical DIRECTED PRN 05/13/23 05/13/23 History topical cream .Itching Past Med/Surg History Medical History (Updated 05/14/23 @ 06:38 by Mao Wisdom MD) Glaucoma History of diverticulitis Hypertension T2DM (type 2 diabetes mellitus) Visual hallucinations Surgical History History of partial colectomy Social History Smoking Status: Former smoker Tobacco Type: Cigarettes Hx Alcohol Use: Yes Hx Substance Use: No Preferred Language: Georgian Communication Ability: Effective Cupola Repairer Required: No Beliefs That Will Affect Care: None Current Living Situation: Alone Other Information That Helps Us Care for You: No Feels Safe at Home: Yes Safety Concerns: Feels Safe At This Time Assistive Devices: Glasses Review of Systems Review of Systems: All systems reviewed & are unremarkable except as noted in HPI & below Physical Exam Constitutional: WD/WN, vitals as above Eyes: PERRL, conjunctivae normal, anicteric sclerae ENMT: external ear and nose normal, oropharynx normal Neck: trachea midline, no thyromegaly Respiratory: normal respiratory effort, lungs clear to auscultation Cardiovascular: RRR, no murmur, no edema Gastrointestinal (Abdomen): normal bowel sounds, soft, nontender, no hepatosplenomegaly Musculoskeletal: no cyanosis or clubbing, extremities motor strength 5/5 Skin: no rashes, warm and dry Neurologic: moves all extremities and awake; no focal motor deficits and not confused Speech / Cognition: normal speech Motor/Sensory: no tremor, normal movement and no pronator drift Cranial Nerves: PERRL, EOM intact bilaterally, normal facial strength, tongue midline, able to rotate head bilaterally, able to elevate shoulders bilaterally, no nystagmus and symmetric palate elevation Coordination: normal [id number] test Psychiatric: A+Ox3, euthymic affect Genitourinary: no CVA tenderness Results & Data Results & Data Vital Signs (Past 12 Hours) Vital Signs Temp Pulse Resp BP Pulse Ox O2 Del Method 05/13/23 13:59 77 05/13/23 13:05 36.8 C 82 20 148/78 H 98 Room Air Laboratory Results Abnormal lab results 05/13/23 05/13/23 05/13/23 Range/Units 13:36 13:36 14:35 [place] # (Auto) 0.73 H (0.11-0.59) K/uL Glucose 114 H (70-99(Fasting)) mg/dl Magnesium 1.3 L (1.7-2.4) mg/dl Total Bilirubin 1.1 H (0.2-1.0) mg/dl Ammonia 16.0 L (18-72) umol/L Urine pH (4.5-7.5) 05/13/23 Range/Units Unknown [place] # (Auto) (0.11-0.59) K/uL Glucose (70-99(Fasting)) mg/dl Magnesium (1.7-2.4) mg/dl Total Bilirubin (0.2-1.0) mg/dl Ammonia (18-72) umol/L Urine pH 8.0 H (4.5-7.5) Diagnostic Findings CT SCAN OF THE BRAIN WITHOUT IV CONTRAST CLINICAL HISTORY: Change in mental status. COMPARISON STUDY: No priors. TECHNIQUE: Unenhanced axial CT scan of the brain is performed from the vertex to the skull base. A dose lowering technique was utilized adhering to the principles of ALARA. CT DOSE: 547.75 mGy.cm FINDINGS: Brain parenchyma: There is age-related involutional change noting mild subcortical and periventricular microangiopathic disease. There is no hemorrhage, mass effect, or evidence of acute territorial ischemia by CT c riteria. Sampson-white matter differentiation is preserved. No extra-axial fluid collection is seen. Ventricles, sulci, cisterns: Prominent secondary to involutional change. Intracranial vasculature: There is atherosclerotic calcification of the cavernous carotid and vertebral arteries. Calvarium: Unremarkable. Sinuses and mastoids: The visualized paranasal sinuses are clear. There is trace right mastoid effusion. The left mastoid air cells are well pneumatized. Orbits: The bony orbits are grossly intact. There are bilateral ocular lens implants. IMPRESSION: There is no hemorrhage, mass effect, or evidence of acute territorial ischemia by CT criteria. SINGLE VIEW CHEST CLINICAL HISTORY: Change in mental status. FINDINGS: An AP, portable, upright chest radiograph is obtained. No prior studies are available for comparison at the time of dictation. The heart is top normal for projection noting atherosclerotic calcification of the thoracic aorta. There is an indeterminant fullness of the left hilum. There is elevation of the right hemidiaphragm. Scarring/atelectasis is noted at the lung bases. No airspace consolidation or large pleural effusion is identified. No pneumothorax is seen. The skeletal structures are osteopenic. The bony thorax is grossly intact. IMPRESSION: 1. No acute cardiopulmonary abnormality is identified. 2. There is nonspecific fullness of the left hilum which may represent normal vascular structures. A contrast-enhanced chest CT is recommended to exclude underlying mass lesion or lymphadenopathy. CT ANGIOGRAM OF THE CHEST CLINICAL HISTORY: Abnormal chest x-ray. Fullness of left hilum. COMPARISON STUDY: Chest x-ray dated 05/13/2023. TECHNIQUE: Following the IV administration of 117 cc of Optiray 320, CT an giogram of the chest was performed from the upper abdomen to the thoracic inlet utilizing the pulmonary embolus protocol. Images are reviewed in the axial, sagittal, and coronal planes. 3-D MIPS images are created and assessed. IV contrast was administered without complication. A dose lowering technique was utilized adhering to the principles of ALARA. CT DOSE: 872.20 mGy.cm FINDINGS: Thyroid: Imaged portions of the thyroid gland are normal in size and attenuation. Thoracic aorta: There is atherosclerotic calcification of the thoracic aorta, which is normal in caliber and demonstrates standard 3-vessel arch anatomy. No dissection is seen. Pulmonary vasculature: The pulmonary trunk is normal in caliber. There are no filling defects identified in main, lobar, or segmental pulmonary branches to suggest pulmonary embolus. Heart: The heart is normal in size and without pericardial effusion. There are coronary artery calcifications. Lungs and pleural spaces: There is mild emphysema. A 9 mm ovoid pulmonary nodule is seen in the left upper lobe on image #130. This appears to contain macroscopic fat and may represent a hamartoma. No air space consolidation typical for pneumonia or pleural effusion is identified. The trachea and central airways are clear. No left hilar lesion is identified as questioned by CT. There are calcified pleural plaques seen bilaterally. One of these is located posterior to the left hilum and this may correspond to part of the abnormality seen by chest x-ray. A 7 mm irregular nodular focus is seen in the right upper lobe along the major fissure on image #162. Scattered foci of parenchymal scarring are seen throughout both lungs. Mediastinum: There is no mediastinal lymphadenopathy. Tiara: Clear. Axillae: There is no axillary lymphadenopathy. Upper abdomen: Cholecystectomy clips are noted. An indeterminate 9 mm nodule arises from the upper pole of the right kidney on image #19. Skeletal structures: The skeletal structures are osteopenic. No lytic or blastic bony lesions are seen. Soft tissues: There is a 8.5 cm lipoma in the subcutaneous soft tissues of the left upper back. A 2.6 cm sebaceous cyst is seen in the presternal soft tissues. IMPRESSION: 1. There is no evidence of pulmonary embolus in the main, lobar, or segmental pulmonary arteries. 2. Calcified pleural plaques are seen bilaterally, left greater than right. This is typical for asbestos-related pleural disease. 3. There is no left hilar abnormality. The radiographic finding likely corresponds to prominent vascular structures, and may also represent one of the posterior pleural plaques at the level of the hilum. 4. Emphysema. 5. There is no airspace consolidation or pleural effusion. 6. There is a 9 mm ovoid pulmonary nodule in the left upper lobe and a 7 mm irregular nodular opacity in the right upper lobe. These are pathologically indeterminant and follow-up is recommended as per the Fleischner criteria. See below. 7. There is a 9 mm indeterminate lesion arising from the upper pole of the right kidney. This can also be reassessed at follow-up. 8. Additional findings as above. Medications Administered ER Medications Given: Mg Sulfate 1g IV ECG Rate (beats per minute): 76 Rhythm: normal sinus Findings: no acute ischemic change Comparison ECG Date: no prior available Code Status & VTE Plan Code Status Full VTE Prophylaxis Plan VTE Prophylaxis will be ordered: No PG Care Time/CCT Total # of Minutes Spent Total Time Spent with Patient: Total time spent is greater than 50% in coordination of care (as documented) at patient's floor/unit and/or counseling patient: Coding Level of Care Code 98983 INT INP/OBS CARE 3/75MIN Diagnoses Visual hallucinations R44.[address] scan of lung R91.8 Low blood magnesium R79.0 Hypertension I10 T2DM (type 2 diabetes mellitus) E11.9
[2023-05-13 17:18] LABS: C Reactive Protein < 0.50 mg/dl (0-0.5); Phosphorus 2.9 mg/dl (2.5-4.9)
[2023-05-13 17:23] LABS: Amphetamines+Metham, Urine Neg (Neg); Barbiturates, Urine Neg (Neg); Benzodiazepine, Urine Neg (Neg); Cocaine, Urine Neg (Neg); MDMA (Ecstacy), Urine Neg (Neg); Methadone, Urine Neg (Neg); Opiate, Urine Neg (Neg); Phencyclidine, Urine Neg (Neg)
[2023-05-13] MEDS ORDERED: SIMVASTATIN 40 MG TAB PO SCH (21:00)
[2023-05-13] MEDS: ENALAPRIL MALEATE 10 MG TAB PO SCH (21:19)
[2023-05-13] MEDS: BRIMONIDINE TARTRATE 0.2% 5ML OPB SCH (21:20)
[2023-05-13] MEDS: DORZOLAMIDE HCL 2% OPH SOLN 10 ML BTL OPB SCH (21:21)
[2023-05-13] MEDS: MAGNESIUM SULFATE / D5W 1 GM/100 ML BAG IV SCH ×2 (21:37→23:04)
[2023-05-14] MEDS ORDERED: GLUCOSE 10 TAB/TUBE PO PRN (06:40)
[2023-05-14] MEDS ORDERED: GLUCAGON FOR INJ 1 MG VIAL SQ PRN (06:40)
[2023-05-14] MEDS ORDERED: GLUCOSE 40% GEL 15 GM TUBE PO PRN (06:40)
[2023-05-14] MEDS ORDERED: CARBOHYDRATES FOR HYPOGLYCEMIA PO PRN (06:40)
[2023-05-14] MEDS ORDERED: DEXTROSE 50% 50 ML SYRINGE IV PRN (06:40)
[2023-05-14 07:20] LABS: Basophils # (auto) 0.06 K/uL (0-0.2); Basophils % (auto) 0.9 %; Eosinophils # (auto) 0.22 K/uL (0-0.50); Eosinophils % (auto) 3.2 %; Hematocrit (blood only) 40.9 % (42.0-52.0); Hemoglobin 13.8 g/dl (14.0-18.0); Immature Granulocytes # (auto) 0.01 K/uL (0.01-0.20); Immature Granulocytes % (auto) 0.1 %; Lymphocytes # (auto) 2.48 K/uL (1.2-3.4); Lymphocytes % (auto) 36.5 %; Mean Corpuscular Hemoglobin 29.7 pg (25.0-34.0); Mean Corpuscular Hgb Conc 33.7 g/dL (32.0-36.0); Mean Platelet Volume 9.8 fL (9.4-12.4); Monocytes # (auto) 0.83 K/uL (0.11-0.59); Monocytes % (auto) 12.2 %; Neutrophils % (auto) 47.1 %; Platelet Count 315 K/uL (130-400); RDW Coefficient of Variation 12.6 % (11.5-14.5); RDW Standard Deviation 40.5 fL (36.4-46.3); Red Blood Count 4.65 M/uL (4.70-6.10)
[2023-05-14 07:29] LABS: BUN Creatinine Ratio 17.5 (10-20); Calcium 8.6 mg/dl (8.6-10.3); Creatinine Clr Calc Pharmacy 63.8 ml/min; Est GFR (African American) 79.7 ml/min; Est GFR (Non-African American) 68.8 ml/min; Potassium 4.3 mmol/L (3.5-5.1)
[2023-05-14] MEDS: BRIMONIDINE TARTRATE 0.2% 5ML OPB SCH (08:06)
[2023-05-14] MEDS: ENALAPRIL MALEATE 10 MG TAB PO SCH (08:06)
[2023-05-14] MEDS: DORZOLAMIDE HCL 2% OPH SOLN 10 ML BTL OPB SCH (08:07)
[2023-05-14] MEDS: INSULIN ASPART PER UNIT CHARGE SC SCH ×2 (08:48→13:23)
[2023-05-14] MEDS ORDERED: CYANOCOBALAMIN (B-12) 500 MCG TABLET PO SCH (09:00)
[2023-05-14] MEDS ORDERED: CHOLECALCIFEROL 1,000 UNITS 25 MCG TAB PO SCH (09:00)
[2023-05-14] MEDS ORDERED: MAGNESIUM OXIDE 400 MG TAB PO SCH (09:00)
[2023-05-14 09:38] LABS: Estimated Average Glucose 157 mg/dl; Hemoglobin A1C 7.1 % (4.5-5.6)
--- NOTE | 2023-05-14 10:55 | Neurology Consultation ---
Date of Consultation May 14, 2023 Assessment & Plan (1) Visual hallucinations: Plan Patient has had a subacute onset of significant visual hallucinations ( seeing types of people in his van and outside and he even drives them around. They do not speak and there is no auditory component to this. It is been daily over the last 2-3 weeks. He has no obvious etiology to this from a neurologic standpoint. Apparently an MRI of the brain was obtained last week and was unremarkable but I have to see these films. He has no obvious toxin exposure, new medications, electrolyte, inflammatory, or other abnormality on laboratory testing. His neurologic examination is entirely within normal limits including no focal findings, meningeal signs, or encephalopathy. He has no signs of parkinsonism (No muscle rigidity, no bradykinesia, no tremor and no balance problems). Lewy body dementia was mention to the family but the patient does not have fluctuating cognitive /attention/alertness or any sleep issues. He may have some psychiatric issues particularly with the of his recently but he seems fairly well adjusted. He does have glaucoma but these do not seem like the kind of visual hallucination should get with ophthalmologic issues. Recommendations: 1. I need to obtain MRI of the brain film and reports to review. 2. I see no need for additional neurologic testing or treatment at this time (Could consider LP but will hold on this for now) 3. I would avoid neuroleptic medications at this time. 4. Consider psychiatric consultation/evaluation 5. Consider complete neuropsychological testing. 6. I need records from optometry and apparently he is seeing Ophthalmology at [facility] in the near future. 7. I will follow up as an outpatient in 2-3 weeks ( with PA) overall, I spent a total of 75 minutes with this case including review of records, review of CT films, report generation, direct evaluation the patient at bedside, and discussion of the case with the patient, his family, RN, and Dr. Caicedo at bedside including differential diagnosis and treatment options. History of Present Illness Reason for Consultation: patient is a 78-year-old, who was asked to see at the request of Dr. Wisdom, for neurologic consultation regarding visual hallucinations. Requesting Physician: Dr. Wisdom Attending Physician: Roseanne Caicedo MD History of Present Illness The patient's daughter and son-in-law are present in the room and help add to the history. He has a history of hypertension and diabetes but has not been put on any new medication recently. Patient has a history of glaucoma on eyedrops followed by his daughter who is an founder president and ceo. Unfortunately, the patient's in February. Patient tells me that he has seen "people "at times very intermittently over the last 2 years. He may go a month without seeing and or see the. The circumstances are vague and they do not speak to him. He will look and see someone on the side of the road while he is driving, move his car out of the way, look again and the person is not there. This has never been much of any concern or issue. He has no history of depression or anxiety and has never been on medication for this. However, over the last several weeks he has seen people (sometimes adults and sometimes children of a very skinny nature in his car. He will come out to his van, see the people in the van and. He will drive them to his work and then they are gone. He never speaks to these individuals and they never speak to him. This has happened on a number of occasions and he has even asked neighbors to help them with these children in his car. The neighbors do not see anything. The patient is not upset or disconcerted by any of this. he is very calm when he speaks of this and his convinced that he sees them. The patient denies headaches, pain, new vision issues, balance problems, falling, incontinence of urine, weakness, or numbness. He is not stiff or slow. 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 He is performing fairly well at his job as far as anyone knows. Apparently his family doctor ordered an MRI of the brain last week. Unfortunately, I do not have these films or report He arrived to the emergency room brought in by his daughters on May 13. At 1:05 p.m., temperature was 36.8, pulse 82, respiratory rate 20, blood pressure 140/78, and O2 saturation 98%. Neurologic examination was unremarkable with normal orientation and speech. There were no focal neurologic findings noted. CBC and Chem profile were normal. Sed rate was 9 and alcohol level was 0. Tox screen was negative. B12 is 276 and TSH 0.58. Urinalysis was unremarkable. Ammonia was 16 lactate 1.2, and procalcitonin less than 0.05. Lyme antibody titers were negative and a bio fire testing was negative. Chest x-ray was unremarkable. CT scan of the head was unremarkable. CT angiography of the chest showed some COPD and is up a couple of pulmonary nodules. There was 1 renal nodule. Today the patient is feeling fine, is calmed, and conversant. Allergies Allergy/AdvReac Type Severity Reaction Status Date / Time No Known Allergies Allergy Verified 05/13/23 17:15 Home Medications Medication Instructions Recorded Confirmed Type ascorbic acid (vitamin C) 250 mg 0 mg PO DAILY 05/13/23 05/13/23 History tablet (Vitamin C) brimonidine 0.2 % eye drops 1 drp OPB TID 05/13/23 05/13/23 History cholecalciferol (vitamin D3) 25 25 mcg PO DAILY 05/13/23 05/13/23 History mcg (1,000 unit) tablet (Vitamin D3) dorzolamide 2 % eye drops 1 drp OPB TID 05/13/23 05/13/23 History dulaglutide 3 mg/0.5 mL 3 mg subcut WE 05/13/23 05/13/23 History subcutaneous pen injector (Trulicity) enalapril maleate 20 mg tablet 20 mg PO BID 05/13/23 05/13/23 History metformin 500 mg tablet 500 mg PO TID 05/13/23 05/13/23 History potassium chloride 20 mEq 20 meq PO DAILY 05/13/23 05/13/23 History tablet,extended release(part/cryst) (Klor-Con M) simvastatin 40 mg tablet 40 mg PO HS 05/13/23 05/13/23 History triamcinolone acetonide 0.1 % 1 applic topical DIRECTED PRN 05/13/23 05/13/23 History topical cream .Itching Patient History Medical History Glaucoma History of diverticulitis Hypertension T2DM (type 2 diabetes mellitus) Visual hallucinations Surgical History History of partial colectomy Social History (Updated 05/14/23 @ 10:46 by Hay Sanchez MD) Smoking Status: Former smoker Tobacco Type: Cigarettes Hx Alcohol Use: Yes Alcohol Intake Frequency: Monthly or Less Hx Substance Use: No Preferred Language: Lithuanian Communication Ability: Effective Investigative Agent Required: No Beliefs That Will Affect Care: None Current Living Situation: Alone current occupational status: employed 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 Other Information That Helps Us Care for You: No Feels Safe at Home: Yes Safety Concerns: Feels Safe At This Time Assistive Devices: Glasses Review of Systems Constitutional: no fever, no fatigue and no weakness Eyes: no diplopia, no eye pain and no worsening vision Ear, Nose, Mouth, Throat: no ear pain, no tinnitus, no hearing loss, no dizziness, no snoring, no hoarseness and no dysphagia Respiratory: no cough and no dyspnea Cardiovascular: no chest pain, no palpitations and no lightheadedness Gastrointestinal: no abdominal pain, no nausea and no vomiting Musculoskeletal: no back pain, no neck pain, no radicular pain, no joint pain and no myalgia Integumentary: no rash and no lesions Neurologic: no gait abnormality, no localized weakness, no generalized weakness, no tingling, no numbness, no tremor(s), no abnormal movements, no headache(s), no abnormal speech, no confusion and no memory loss Psychiatric: + hallucinations and + visual hallucinations; no depression, no irritability, no anxiety, no difficulty concentrating and no confusion Endocrine: no fatigue and no flushing Hematologic / Lymphatic: no easy bleeding and no easy bruising Allergy / Immunological: no urticaria and no problem reported Exam (Neuro) Physical Exam: The patient is right-handed. The patient is awake, alert, and attentive. Speech is normal without any aphasia or dysarthria. The patient can name objects, repeat phrases, and has normal spontaneous speech. Mentation and thought processes are intact, with orientation to person, place and time, and normal fund of knowledge. Attention and concentration are normal. Mood and affect are normal and appropriate. General appearance and grooming are normal. Short and long-term memory are intact. Pupils are 3 mm bilaterally and reactive to light. Extraocular eye muscles are intact without nystagmus. Visual acuity and visual miranda seem normal grossly to confrontation. There are no deficits to sensation in the face in all 3 distributions of the fifth cranial nerve bilaterally. Corneal reflexes are positive bilaterally. Facial strength and symmetry was normal bilaterally. Hearing seems normal bilaterally. Palate moves well without asymmetry. There is normal sternocleidomastoid and trapezius (shoulder shrug) strength bilaterally. Tongue is midline with good strength bilaterally. Neck has a full range of motion without discomfort. There are no cervical bruits bilaterally. There are no cranial or ocular bruits. Heart is without murmur. There is a regular rhythm and rate. Cervical, thoracic, and lumbar spine are nontender to palpation. Gait is narrow based, with good arm swing, turns, and stance. Balance is normal eyes open or closed. With outstretched arms there is no drift. There are no resting, postural, or action tremors. There is no ataxia with finger to nose testing. There is good facility in the hands. No other abnormal involuntary movements are noted. Motor strength is 5/5 diffusely in the arms bilaterally including deltoids, biceps, triceps, brachioradialis, wrist flexors and extensors, shorthand reporter, and intrinsic hand muscles. Motor strength is 5/5 diffusely in the legs bilaterally including hip flexors, quadriceps, hamstrings, gastrocnemius, tibialis anterior, tibialis posterior, and Peroneii muscles. Toe extensors are normal and there is good bulk in the extensor digitorum brevis muscles bilaterally. The limbs have good tone without rigidity or spasticity. There is no atrophy noted in the muscles. Muscle bulk is normal, there is no tenderness to palpation, no myotonia to percussion, and no fasciculations seen. Sensory examination is intact to touch and pin throughout all 4 limbs diffusely. Reflexes are 2/4 in the biceps, triceps, brachioradialis, and quadriceps tendons bilaterally. Achilles tendon reflexes are absent bilaterally. There is no clonus bilaterally. Toes are downgoing with plantar stimulation bilaterally. Peripheral pulses are present and of normal quality distally in all 4 limbs. There is no peripheral edema noted in the limbs. Results & Data Vital Signs (Past 12 Hours) Vital Signs Temp Pulse Resp BP Pulse Ox O2 Del Method 05/14/23 07:20 36.7 C 64 16 148/77 H 94 Room Air PG Care Time/CCT Total # of Minutes Spent Total Time Spent with Patient: Total time spent is greater than 50% in coordination of care (as documented) at patient's floor/unit and/or counseling patient: Coding Level of Care Code 49162 INT INP/OBS CARE 3/75MIN Diagnoses Visual hallucinations R44.1
--- NOTE | 2023-05-14 14:19 | Discharge Summary ---
Date of Service May 14, 2023 Admission HPI Per Admitting Provider Colt Gutiérrez is a 78 year old male who presents to the ER on advice of his daughters due to visual hallucinations. He reports 2-3 year of seeing things that aren't there when he is driving such as a girl at the side of the road that then turns out to be a sign post. He recognizes this as something that is not truly there. 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 He does not feel this impairs his driving as he doesn't think he would swerve to the other side of the road if he saw something that wasn't there and this has been going on for so long that it has never been an issue. More recently he report he has been driving children in the back of his car. His daughters note he has only mentioned this since his in February. These are much more bizarre stories such as children hiding in post boxes and no one else has seen these children in the car as when his granddaughter went to look they would hide underneath the upholstery. He is adamant these children are real and does not recognize and is unable to reason with regarding the bizarre nature of these stories. When trying to reason with him that we do not believe these children are real he is adamant they are because he can see them and is talking to them. He recognizes he also talks to people sometimes that other people cannot see them but again cannot be reasoned with that these may be hallucinations or at least our concerns that they are. Regarding his eye sight his daughter is an utility porter and other than a "squiggle" at the back of his retina which has been checked at by [facility] as not thought to be a problem his eye sight is excellent. He denies any history of migraines, seizures, dementia (short term memory loss), alcohol, illicit drugs, narcolepsy, depression or anxiety. After his in February he denies any significant change in his sleep or eating/drinking. He did do everything with his but doesn't think he is getting out less or depressed. He actually feels he is seeing his family more which has been a good thing. Principal Diagnosis Hallucinations Discharge Exam The patient is awake, alert and oriented 3, well developed and well nourished, normocephalic and atraumatic, lying in bed and in no acute distress. HEENT--PERRL, EOMI, mucous membranes and oropharynx mildly dry Neck--supple. No JVD. No bruits. Thyroid normal, trachea midline, no adenopathy. Heart--normal S1 and S2. No murmurs, rubs or gallops. Lungs--clear bilaterally, no respiratory distress, no accessory muscle use. Abdomen--normal bowel sounds and soft. Mild epigastric and left sided abdominal pain Extremities--no cyanosis or clubbing. No edema. Dermatologic--normal skin turgor, normal color, no abnormal lymph nodes, no rash. Neurologic--cranial nerves II through XII grossly intact. Rheumatologic--normal range of motion. Psychiatric--normal affect. Discharge Data Allergies Allergy/AdvReac Type Severity Reaction Status Date / Time No Known Allergies Allergy Verified 05/13/23 17:15 Consultations 05/13/23 16:49 ED Decision to Admit Stat 05/13/23 22:56 Consult Neurology Routine 05/13/23 22:58 HIM [Consult Health Information Management] Routine Ordered Studies 05/13/23 13:52 CT head/brain wo con Stat 05/13/23 14:43 CT angio chest PE protocol Stat Hospital Course (1) Visual hallucinations: Etiology is uncertain, could be complicated grief given recent of his spouse in February Also obtained screening for syphilis to r/o neurosyphilis, although less likely HIM request for brain MRI at [facility] Neurology evaluated and suggested outpatient follow up for more in depth neuro cognitive assessment and possible neuropsychiatry eval (2) Abnormal CT scan of lung: 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 Follow up PCP regarding 9mm lesion upper pole right kidney (3) Low blood magnesium: Mg level 1.3 Mg sulfate 1g IV given in ER, additional 2g IV, repeat with AM labs (4) Hypertension: No longer taking carvedilol - making excuse he needs to order it from another pharmacy therefore has not picked it up from December but suspect he is confabulating a reason Will hold off restarting currently for serial BP measurements Continue enalapril (5) T2DM (type 2 diabetes mellitus): Regular diet Home meds metformin and Trulicity Metformin on hold due to iodinated contrast given Family may bring in Trulicity tomorrow as due this today In the mean time will just use Novolog for correction if needed HbA1C with AM labs Plan d/c home, follow up with neurology Total Time Total Time Spent Total Time Spent (In Minutes): 35 Discharge Plan Discharge Items Patient Disposition: Home - Self-Care Reason For Visit: VISUAL HALLUCINATIONS Discharge Diagnosis: visual hallucinations Activity: Resume your previous activity Non-emergency contact: Primary Care Provider and Neurologist Call non-emergency contact if: you have any medication questions and your symptoms worsen Follow-up/Referrals: Hay Sanchez MD [Physician] - (Please call to schedule with Dr Sanchez in 2 weeks I was unable to reach the office) Simon Danielson [Primary Care Provider] - 05/17/23 1:30 pm Diet: Regular Addtl Attending Provider Instructions: please make appointment to follow up with DR Sanchez in 2 weeks. He will also hook you up with a neuropsychiatrist if necessary Pending Studies at Discharge: Yes Studies:: [facility]PR Stand-Alone Forms: My [facility], Smoking Cessation Medications and DC Order Prescriptions: Continued metformin 500 mg tablet 500 mg PO TID enalapril maleate 20 mg tablet 20 mg PO BID triamcinolone acetonide 0.1 % cream 1 applic TOPICAL DIRECTED PRN (Reason: .Itching) simvastatin 40 mg tablet 40 mg PO HS potassium chloride [Klor-Con M20] 20 mEq tablet,ER particles/crystals 20 meq PO DAILY Rx Instructions: Has not been taking brimonidine 0.2 % drops 1 drp OPB TID dorzolamide 2 % drops 1 drp OPB TID Trulicity 3 mg/0.5 mL pen injector 3 mg SUBCUT WE Rx Instructions: sun ascorbic acid (vitamin C) [Vitamin C] 250 mg Tablet 0 mg PO DAILY cholecalciferol (vitamin D3) [Vitamin D3] 25 mcg (1,000 unit) Tablet 25 mcg PO DAILY Discharge Orders: Discharge Order (Routine); Ordered 05/14/23 Ordered By: Roseanne Colon/Other Patient Handouts: Managing Type 2 Diabetes Admission Data Admit Date/Time: 05/13/23 17:54 Attending Provider: Roseanne Caicedo Admit Provider: Alyx,Mao M. Primary Care Provider: Simon Danielson Other Providers: Mao Wisdom Emile Other Interventions: Discharge Summary Assessment (RN) Last Done: 05/14/23 12:30 Coding Level of Care Code 46973 INP/OBS DISCH >30 MIN Diagnoses Visual hallucinations R44.[address] scan of lung R91.8 Low blood magnesium R79.0 Hypertension I10 T2DM (type 2 diabetes mellitus) E11.9 Time Spent (min) 35
--- NOTE | 2023-05-15 22:39 | Electrocardiogram Report ---
Test Reason : Blood Pressure : / mmHG Vent. Rate : 076 BPM Atrial Rate : 076 BPM P-R Int : 116 ms QRS Dur : 068 ms QT Int : 356 ms P-R-T Axes : 017 035 070 degrees QTc Int : 400 ms Normal sinus rhythm Normal ECG No previous ECGs available Confirmed by Kodi Peña ([id number]) on 05/15/2023 10:38:36 PM Referred By: REFERRED SELF Confirmed By:Kodi Peña
== END 2023-05-14 13:24 | disposition home or self-care (01) ==
LOC: 3W 13:01 → ED 13:01 → SUATTDRO 17:54 → 3W 19:56

== ENCOUNTER 2025-01-19 13:52 | Observation (INO) ==
[2025-01-19 14:51] LABS: Basophils # (auto) 0.06 K/uL (0.00-0.20); Basophils % (auto) 1.2 %; Eosinophils # (auto) 0.22 K/uL (0.00-0.50); Eosinophils % (auto) 4.4 %; Hemoglobin 13.6 g/dl (14.0-18.0); Immature Granulocytes # (auto) 0.01 K/uL (0.01-0.20); Immature Granulocytes % (auto) 0.2 %; Lymphocytes # (auto) 1.68 K/uL (1.20-3.40); Lymphocytes % (auto) 33.5 %; Mean Corpuscular Hemoglobin 29.1 pg (25.0-34.0); Mean Corpuscular Hgb Conc 33.2 g/dL (32.0-36.0); Mean Corpuscular Volume 87.8 fL (80.0-100.0); Mean Platelet Volume 9.9 fL (9.4-12.4); Monocytes # (auto) 0.63 K/uL (0.11-0.59); Monocytes % (auto) 12.6 %; Neutrophils # (auto) 2.41 K/uL (1.40-6.50); Neutrophils % (auto) 48.1 %; Platelet Count 287 K/uL (130-400); RDW Coefficient of Variation 12.9 % (11.5-14.5); RDW Standard Deviation 41.2 fL (36.4-46.3); Red Blood Count 4.67 M/uL (4.70-6.10); White Blood Count 5.01 K/ul (4.8-10.8)
[2025-01-19 14:53] LABS: Albumin Globulin Ratio 1.5 (0.9-2); BUN Creatinine Ratio 17.9 (10-20); Calcium 9.3 mg/dl (8.6-10.3); Creatinine Clr Calc Pharmacy 55.3 ml/min; Globulin 2.7 gm/dl (2.5-4.0); Potassium 3.9 mmol/L (3.5-5.1); Total Protein 6.7 gm/dl (6.0-8.3)
--- NOTE | 2025-01-19 14:58 | XRay Report ---
XR chest 1V portable CLINICAL HISTORY: weakness mental status change COMPARISON STUDY: 05/13/2023 FINDINGS: Single view of the chest demonstrates no significant interval change and no acute cardiopul monary process is identified. Is no airspace opacity or pleural effusion. There is a large pleural pl aque adjacent to the left axilla contains calcification. Heart size and pulmonary vascularity are unr emarkable. There are pronounced degenerative changes at the acromioclavicular joints bilaterally. IMPRESSION: Stable exam; no acute process. Large left-sided pleural plaque redemonstrated. ACT 112: Negative or not required by law. Electronically signed by: Martha Hurd M.D. 01/19/2025 2:56 PM
[2025-01-19 14:59] LABS: Troponin I High Sensitivity 3.6 pg/ml (0-20)
[2025-01-19 15:06] LABS: Thyroid Stimulating Hormone 0.875 uIu/ml (0.300-4.500)
[2025-01-19 15:39] LABS: Adenovirus PCR Not Detected (NotDetected); Bordetella parapertussis PCR Not Detected (NotDetected); Bordetella pertussis PCR Not Detected (NotDetected); Chlamydia pneumoniae PCR Not Detected (NotDetected); Coronavirus 229E PCR Not Detected (NotDetected); Coronavirus CoV-2 (COVID19)PCR Not Detected (NotDetected); Coronavirus HKU1 PCR Not Detected (NotDetected); Coronavirus NL63 PCR Not Detected (NotDetected); Coronavirus OC43PCR Not Detected (NotDetected); Human Metapneumovirus PCR Not Detected (NotDetected); Influenza A PCR Not Detected (NotDetected); Influenza B PCR Not Detected (NotDetected); Mycoplasma pneumoniae PCR Not Detected (NotDetected); Parainfluenza Virus 1 PCR Not Detected (NotDetected); Parainfluenza Virus 2 PCR Not Detected (NotDetected); Parainfluenza Virus 3 PCR Not Detected (NotDetected); Parainfluenza Virus 4 PCR Not Detected (NotDetected); Respiratory Syncytial VirusPCR Not Detected (NotDetected); Rhinovirus/Enterovirus PCR Not Detected (NotDetected)
[2025-01-19 16:08] LABS: Appearance Urine Clear (Clear); Bilirubin Urine Negative (Negative); Blood Urine Negative (Negative); Color Urine Yellow; Glucose Urine UA Negative (Negative); Ketones Urine Trace (Negative); Leukocyte Esterase Urine Negative (Negative); Nitrite Urine Negative (Negative); Protein Urine Negative (Negative); Specific Gravity Urine 1.021 (1.000-1.030); Urobilinogen Urine Negative (Negative)
[2025-01-19] MEDS: SODIUM CHLORIDE 0.9% 1,000 ML IV ONE (16:20)
--- NOTE | 2025-01-19 16:32 | CT Scan Report ---
Clinical History: Fall Technique: Axial computed tomography images were obtained of the brain without intravenous contrast. Comparison is made to the prior CT dated 05/13/2023 Findings: There is unchanged cerebral atrophy, within expected limits for the patient's age. Areas of decreased attenuation are seen within the periventricular white matter, likely representing chronic small vessel ischemic disease. There is no definite sign of acute or old infarction. No intracranial hemorrhage is evident. No definite mass lesion is seen on this noncontrast examination. There is no midline shift or other form of herniation. No hydrocephalus is seen. No fracture is identified. The orbits and the visualized paranasal sinuses appear unremarkable. There is new partial opacification of the right mastoid air cells Impression: 1. Cerebral atrophy and chronic small vessel ischemic disease 2. Partial opacification of the right mastoid air cells, which may be due to inflammatory mastoiditis Electronically signed by Abdelrahman Flores 01-19-2025 4:31 PM
--- NOTE | 2025-01-19 16:36 | CT Scan Report ---
Clinical history: Fall Technique: Axial computed tomography images were obtained of the cervical spine without intravenous contrast. Sagittal and coronal reconstructions were obtained Findings: No definite fracture is identified. There are apparent Schmorl's nodes at C5-6 and C6-7. No listhesis is seen. No focal osseous lesion is evident. There is atlantoaxial osteoarthritis. At C2-3, no disc herniation is identified. There is no spinal stenosis. The neural foramen are patent At C3-4, there is a mild disc bulge. There is no spinal stenosis. The neural foramen are patent At C4-5, there is a mild disc bulge. There is no spinal stenosis. The neural foramen are patent At C5-6, there is spinal stenosis due to a disc bulge and a central disc protrusion. There is right neural foramen narrowing that may affect the right C6 nerve root At C6-7, there is a disc bulge without spinal stenosis. The neural foramen are patent At C7-T1,no disc herniation is identified. There is no spinal stenosis. The neural foramen are patent The lung apices appear clear. The visualized soft tissues of the neck appear unremarkable. No foreign body is seen Impression: 1. No definite cervical spine fracture 2. Spinal stenosis at C5-6 3. Right C5-6 neural foramen narrowing that may affect the right C6 nerve root Electronically signed by Abdelrahman Flores 01-19-2025 4:36 PM
--- NOTE | 2025-01-19 17:06 | History & Physical Report ---
Date of Service January 19, 2025 Assessment & Plan (1) Altered mental status: (2) Somnolence: (3) Dementia with behavioral disturbance: Plan 79 year old male with a past medical history of Lewy body dementia presenting with increased confusion and somnolence. # Delirium in the setting of dementia - Etiology-> polypharmacy in the setting of newly increased trazodone/Seroquel and addition of doxepin - arousable on exam, able to answer some questions, no focal neurological d eficits - labs unremarkable, Head CT without acute pathology - hold above medications - Some poor PO intake -> dehydration could also be contributing factor-> s/p 1L IVF, give an additional 1L NSS @80ml/hr - fall precautions, PT/OT consult #Abnormal Head CT - ?reading of inflammatory mastosis on Head CT-> clinically without pain swelling over mastoid, afebrile, no leucocytosis - low suspicious for true infection at this point #DM2 - diet controlled Diet: Regular Code: DNI/DNR as per daughter/son at bedside VTE Prophylaxis: Lovenox History of Present Illness Primary Care Provider: Jarred Cortes 79 year old male with a past medical history of Lewy body dementia,HTN pres enting with increased somnolence, AMS. History from son and daughter at bedside. Lives at [place]. Normally relativity independent with ADLs. Last week increased trazodone from 25mg qHS to 100mg qHH, Seroquel from 50mg BID to 100mg BID and adding doxepin. Since then has been more confused. Sleeping more starting yesterday. ?unwitnessed fall yesterday evening. When daughter went to see him today and he was hard to arouse, wanted to continue to sleep which prompted them to come in. ED course Significant for: CMP, CBC, trop, TSH, UA unremarkable, Head CT without acute pathology. S/p 1000mL IVF in the ED Allergies Allergy/AdvReac Type Severity Reaction Status Date / Time ibuprofen [From Motrin] Allergy Unknown Verified 09/24/24 10:10 latex Allergy Unknown Verified 09/24/24 10:10 Home Medications Medication Instructions Recorded Confirmed Type dorzolamide 2 % eye drops 1 drp OPB TID 05/13/23 01/08/25 History syringe with needle 1 mL 25 gauge #100 ea 05/30/23 05/30/23 Rx x 1" acetaminophen 325 mg capsule 325 mg PO QID PRN 09/24/24 01/08/25 History calcium 600 mg (as carbonate)-vit tab PO 09/24/24 01/08/25 History D3 10 mcg (400 unit) chewable tablet (Calcium 600 with Vitamin D3) melatonin 3 mg capsule 3 mg PO HS PRN 09/24/24 01/08/25 History netarsudil 0.02 %-latanoprost 1 drp ophthalmic (eye) DAILY 09/24/24 01/08/25 History 0.005 % eye drops (Rocklatan) quetiapine 50 mg tablet 50 mg PO BID 09/24/24 01/08/25 History cetirizine 10 mg tablet 10 mg PO DAILY PRN 01/08/25 01/08/25 History doxepin 3 mg tablet 3 mg PO .qhs #30 tabs 01/08/25 01/08/25 Rx trazodone 100 mg tablet 100 mg PO .qhs #30 tabs 01/08/25 01/08/25 Rx Past Med/Surg History Problem List (Updated 01/19/25 @ 17:41 by Aurelia Nicole DO) Somnolence Pain in right arm Insomnia Anxiety Dementia with behavioral disturbance Vitamin B 12 deficiency T2DM (type 2 diabetes mellitus) Hypertension Altered mental status (Acute) Low blood magnesium (Acute) Abnormal CT scan of lung (Acute) Visual hallucinations (Acute) Medical History Glaucoma History of diverticulitis Hypertension T2DM (type 2 diabetes mellitus) Visual hallucinations Surgical History History of partial colectomy Social History (Updated 05/14/23 @ 10:46 by Hay Sanchez MD) Smoking Status: Former smoker Tobacco Type: Cigarettes Hx Alcohol Use: No Hx Substance Use: No Preferred Language: Cambodian Communication Ability: Effective Washing Machine Mechanic Required: No Beliefs That Will Affect Care: None Current Living Situation: Personal Care Facility Current Living Situation Comment: Memory Care [facility] current occupational status: employed 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 Other Information That Helps Us Care for You: No Feels Safe at Home: Yes Safety Concerns: Feels Safe At This Time Assistive Devices: None Review of Systems Review of Systems: Unobtainable due to cognitive status Physical Exam Physical Exam: Constitutional: well-appearing, no acute distress HEENT: NCAT, no conjunctival injection CV: regular rhythm, no murmur appreciated, extremities well-perfused Resp: CTABL, no wheezes/rales/rhonchi appreciated, no increased work of breathing GI: soft, nondistended, nontender MSK: no gross deformities appreciated Skin: warm, dry, no rash appreciated Neuro: alert, oriented, no focal neurologic deficit appreciated- moving all extremities Results & Data Results & Data Vital Signs (Past 12 Hours) Vital Signs Temp Pulse Pulse Resp BP BP Pulse Ox 01/19/25 16:07 58 L 18 154/86 H 98 01/19/25 15:24 57 L 20 133/70 98 01/19/25 14:25 77 20 96 01/19/25 14:25 66 20 165/72 H 96 01/19/25 14:15 81 01/19/25 13:53 36.6 C 69 18 151/72 H 97 O2 Del Method 01/19/25 16:07 Room Air 01/19/25 15:24 Room Air 01/19/25 14:25 Room Air 01/19/25 14:25 Room Air 01/19/25 14:15 01/19/25 13:53 Supervising Physician Co-Signing Physician Notes I personally examined the patient and verified all saenz points of history and exam, discussed case, and agree with decision making with Dr Nicole No meaningful HPI or review of systems obtainable from patient. Family notes that a week ago while he was quite demented he would walk on the treadmill, they would be able to take about coffee. Note that the Seroquel at a lower dose was helpful in blunting very troublesome hallucinations at bedtime. They were unaware of why the Seroquel it been raised, doxepin and trazodone startedapparently happened at some point last week. They noted they were discussing it with his PCP who was inclined to dose reduce, but as they were get ting to know his care team, at that point went with the plan per psychiatry. Vitals noted, in general he is fairly sleepy but awakens and talks some does not appear to be in any significant distress. HEENT normocephalic atraumatic mucous membranes moist. Breathing unlabored no accessory muscle use good effort. Skin without rashes pallor or icterus. Neuro without focal deficits. Confusion/somnolencepolypharmacy relatedthe main question will be if it is purely medication side effect that will wear off fairly quickly versus more of a true delirium induced by polypharmacy that will take longer. Initially the plan was to stop all of his psychiatric meds given that the 2 were brand-new and 1 was a dose increase, but after discussion with his family it sounds like he actually did quite well on a lower dose of Seroquel for a whilewe will need to clarify exactly what that dose wasfor now we will drop it to 25 at bedtime until we are able to obtain better information. Discussed med management with dementia, discussed that probably moving in more of a stepwise approach in the future, they agreed. As far as his progress here in the hospital, if he wakes up fairly quickly and is able to do things for himself, he may be able to go back to personal care and will be much more of a med side effect/polypharmacy, if it seems that the process is much slower on improvement it would probably be more consistent with a polypharmacy induced deliriumand depending on his ability for self-care once he is waking up more, he may be able to return to personal care versus may be having to go to SNF for a while. PT/OT eval and treat. DVT prophylaxisLovenox Resident Activity Tracking Resident Involvement: Resident Care Provided Care Provided: Adult Hospital Medicine
[2025-01-19] MEDS: SODIUM CHLORIDE 0.9% 1,000 ML IV SCH (18:20)
--- NOTE | 2025-01-19 18:22 | Emergency Department Note ---
Impression & Plan Altered mental status, Somnolence, At risk for polypharmacy ED Provider Note NAME: VAISHNAVI BRUNO AGE: 79 SEX: M : 1945 ARRIVES VIA: Walk-In INFORMANT: [Patient][, ] ED PROVIDER(S): [Tami Pollard MD] CHIEF COMPLAINT: Lethargy, confusion HPI: This is a 79-year-old male presenting for lethargy and confusion. The patient is with his daughter provides all the history. Patient is currently sleeping and somewhat altered. He reportedly was found on the ground twice yesterday throughout the course the past 24 hours. Patient previously was up, alert, independent living and now is unable to do things such as he does not meals or drink water. Daughter states that this happened abruptly over the past 24 hours. She was concerned that UTI initially. She also found out that patient was not candidate prophy medications including trazodone over the past and this was recently changed. Over the past 1 week he has been receiving trazodone 100 mg as a as well as increased doses of Seroquel and was present started on doxepin. ROS: See above HPI for pertinent positives & negatives. A total of [10] systems reviewed and were otherwise negative. PAST MEDICAL HISTORY: [See Below] PAST SURGICAL HISTORY: [See Below] FAMILY HISTORY: [See Below] SOCIAL HISTORY: [See Below] HOME MEDICATIONS: [See Below] ALLERGIES: [See Below] VITALS: See Below PHYSICAL EXAMINATION: General: Sleeping, somewhat arousable Head: Normocephalic and atraumatic Eyes: Normal inspection, extraocular muscles intact Ear, nose, throat: Normal external exam Neck: Normal range of motion Respiratory: lungs clear to auscultation bilaterally Cardiovascular: Regular rate/rhythm, no murmur GI: soft, nontender, no guarding or rebound Extremities: nontender, moves all extremities Neuro: Asleep, moves all extremities Skin: Warm, dry, and intact MEDICAL DECISION MAKING: This is an 79-year-old male presented for lethargy/confusion. Patient was appears somewhat lethargic but is arousable. Will do screening blood work, chest x-ray, CT head and C-spine for the falls -Chest Xray independently interpreted by me showing no pneumothorax, focal opacity, or pleural effusions. -CT head/C-spine negative for traumatic injury does show spinal stenosis C5/C6 as well as neuroforaminal narrowing -ECG independently interpreted by me with [normal sinus rhythm], rate of 66, [normal axis], [normal IA], [normal QRS], [normal QTc], [no ST segment elevations consistent with STEMI criteria] -Urinalysis reveals no signs of UTI -At this time there is no clear cause for patient's current symptoms. Consider polypharmacy as potential etiology as he has received high doses of trazodone, new medication of doxepin and now is also on Seroquel and increasing high doses. -discussed care with Dr. Ahuja for admission Differential diagnosis: UTI, subdural hematoma, skull fracture, pneumonia, URI, polypharmacy Independent History obtained from: Daughter Diagnostics interpreted by me: ECG: See above Cardiac Monitoring: An order was placed for continuous cardiac monitoring. The monitor shows a rate of 53 with sinus rhythm. Past Med/Surg History Problem List (Updated 01/20/25 @ 19:24 by Tami Pollard MD) At risk for polypharmacy (Acute) Somnolence (Acute) Pain in right arm Insomnia Anxiety Dementia with behavioral disturbance Vitamin B 12 deficiency T2DM (type 2 diabetes mellitus) Hypertension Altered mental status (Acute) Low blood magnesium (Acute) Abnormal CT scan of lung (Acute) Visual hallucinations (Acute) Medical History Glaucoma History of diverticulitis Hypertension T2DM (type 2 diabetes mellitus) Visual hallucinations Surgical History History of partial colectomy Social History (Updated 05/14/23 @ 10:46 by Hay Sanchez MD) Smoking Status: Former smoker Tobacco Type: Cigarettes Hx Alcohol Use: No Hx Substance Use: No Preferred Language: [place] Citizen Communication Ability: Impaired Flex O Writer Operator Required: No Beliefs That Will Affect Care: None Current Living Situation: Personal Care Facility Current Living Situation Comment: 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 Feels Safe at Home: Yes Assistive Devices: None Allergies Allergies Allergy/AdvReac Type Severity Reaction Status Date / Time ibuprofen [From Motrin] Allergy Unknown Verified 09/24/24 10:10 latex Allergy Unknown Verified 09/24/24 10:10 Home Meds Home Medications Medication Instructions Recorded Confirmed dorzolamide 2 % eye drops 1 drp OPB TID 05/13/23 01/08/25 acetaminophen 325 mg capsule 325 mg PO QID PRN 09/24/24 01/08/25 calcium 600 mg (as carbonate)-vit tab PO 09/24/24 01/08/25 D3 10 mcg (400 unit) chewable tablet (Calcium 600 with Vitamin D3) melatonin 3 mg capsule 3 mg PO HS PRN 09/24/24 01/08/25 netarsudil 0.02 %-latanoprost 1 drp ophthalmic (eye) DAILY 09/24/24 01/08/25 0.005 % eye drops (Rocklatan) quetiapine 50 mg tablet 50 mg PO BID 09/24/24 01/08/25 cetirizine 10 mg tablet 10 mg PO DAILY PRN 01/08/25 01/08/25 Previous Rx's Medication Instructions Recorded syringe with needle 1 mL 25 gauge #100 ea 05/30/23 x 1" doxepin 3 mg tablet 3 mg PO .qhs #30 tabs 01/08/25 trazodone 100 mg tablet 100 mg PO .qhs #30 tabs 01/08/25 Results & Data (ED) Vital Signs Vital Signs - 24 hr 01/19/25 13:53 01/19/25 14:15 01/19/25 14:25 Temperature 36.6 C Temperature Source Temporal Artery Scan Pulse Rate 69 81 Pulse Rate [Apical] 66 Respiratory Rate 18 20 Blood Pressure 151/72 H Blood Pressure [Left Arm] 165/72 H Blood Pressure Mean 98 Blood Pressure Mean [Left Arm] 103 Pulse Oximetry 97 96 Oxygen Delivery Method Room Air Sepsis Recent Fever Within 48 Hours No Sepsis New/Unexplained Change in Mental Status N/A Sepsis Action Taken by Nursing No Action Required 01/19/25 14:25 01/19/25 15:24 01/19/25 16:07 Temperature Temperature Source Pulse Rate 77 Pulse Rate [Apical] 57 L 58 L Respiratory Rate 20 20 18 Blood Pressure Blood Pressure [Left Arm] 133/70 154/86 H Blood Pressure Mean Blood Pressure Mean [Left Arm] 91 108 Pulse Oximetry 96 98 98 Oxygen Delivery Method Room Air Room Air Room Air Sepsis Recent Fever Within 48 Hours Sepsis New/Unexplained Change in Mental Status Sepsis Action Taken by Nursing 01/19/25 17:53 Temperature Temperature Source Pulse Rate Pulse Rate [Apical] 53 L Respiratory Rate 16 Blood Pressure Blood Pressure [Left Arm] 158/98 H Blood Pressure Mean Blood Pressure Mean [Left Arm] 118 Pulse Oximetry 97 Oxygen Delivery Method Room Air Sepsis Recent Fever Within 48 Hours Sepsis New/Unexplained Change in Mental Status Sepsis Action Taken by Nursing Laboratory Data 01/20/25 06:17 01/20/25 06:17 Lab Results 01/19/25 01/19/25 01/19/25 Range/Units 14:20 14:40 15:54 WBC 5.01 (4.8-10.8) K/ul RBC 4.67 L (4.70-6.10) M/uL Hgb 13.6 L (14.0-18.0) g/dl Hct 41.0 L (42.0-52.0) % MCV 87.8 (80.0-100.0) fL MCH 29.1 (25.0-34.0) pg MCHC 33.2 (32.0-36.0) g/dL RDW Std Deviation 41.2 (36.4-46.3) fL RDW Coeff of Lalito 12.9 (11.5-14.5) % Plt Count 287 (130-400) K/uL MPV 9.9 (9.4-12.4) fL Immature Gran % (Auto) 0.2 % Neut % (Auto) 48.1 % Lymph % (Auto) 33.5 % Benzie % (Auto) 12.6 % Eos % (Auto) 4.4 % Baso % (Auto) 1.2 % Neut # (Auto) 2.41 (1.40-6.50) K/uL Lymph # (Auto) 1.68 (1.20-3.40) K/uL Benzie # (Auto) 0.63 H (0.11-0.59) K/uL Eos # (Auto) 0.22 (0.00-0.50) K/uL Baso # (Auto) 0.06 (0.00-0.20) K/uL Immature Gran # (Auto) 0.01 (0.01-0.20) K/uL Sodium 138 (136-145) mmol/L Potassium 3.9 (3.5-5.1) mmol/L Chloride 102 (98-107) mmol/L Carbon Dioxide 31 (21-32) mmol/L Anion Gap 5 (3-11) BUN 21 (6-23) mg/dl Creatinine 1.17 (0.6-1.4) mg/dl Est Cr Clr Drug Dosing 55.3 ml/min eGFR 63.02 BUN/Creatinine Ratio 17.9 (10-20) Glucose 202 H (70-99(Fasting)) mg/dl Calcium 9.3 (8.6-10.3) mg/dl Total Bilirubin 1.0 (0.2-1.0) mg/dl AST 21 (13-39) U/L ALT 13 (7-52) U/L Alkaline Phosphatase 94 (34-104) U/L Troponin I High Sens 3.6 (0-20) pg/ml B-Natriuretic Peptide 25 (0-100) pg/ml Total Protein 6.7 (6.0-8.3) gm/dl Albumin 4.0 (3.4-5.0) gm/dl Globulin 2.7 (2.5-4.0) gm/dl Albumin/Globulin Ratio 1.5 (0.9-2) TSH 0.875 (0.300-4.500) uIu/ml Urine Color Yellow Urine Appearance Clear (Clear) Urine pH 6.0 (4.5-7.5) Ur Specific [place] 1.021 (1.000-1.030) Urine Protein Negative (Negative) Urine Glucose (UA) Negative (Negative) Urine Ketones Trace H (Negative) Urine Blood Negative (Negative) Urine Nitrite Negative (Negative) Urine Bilirubin Negative (Negative) Urine Urobilinogen Negative (Negative) Ur Leukocyte Esterase Negative (Negative) Adenovirus (PCR) Not Detected (NotDetected) B. pertussis DNA (PCR) Not Detected (NotDetected) B.parapertussis DNA PCR Not Detected (NotDetected) C. pneumoniae DNA (PCR) Not Detected (NotDetected) Coronavirus OC43 (PCR) Not Detected (NotDetected) Coronavirus HKU1 (PCR) Not Detected (NotDetected) Coronavirus 229E (PCR) Not Detected (NotDetected) SARS-CoV-2 (PCR) Not Detected (NotDetected) Coronavirus NL63 (PCR) Not Detected (NotDetected) Human Metapneumovir PCR Not Detected (NotDetected) Influenza Type A (PCR) Not Detected (NotDetected) Influenza Type B (PCR) Not Detected (NotDetected) M. pneumoniae (PCR) Not Detected (NotDetected) Parainfluenza 1 (PCR) Not Detected (NotDetected) Parainfluenza 2 (PCR) Not Detected (NotDetected) Parainfluenza 3 (PCR) Not Detected (NotDetected) Parainfluenza 4 (PCR) Not Detected (NotDetected) RSV (PCR) Not Detected (NotDetected) Entero/Rhino (PCR) Not Detected (NotDetected) Administered Medications Dorzolamide HCl (Dorzolamide Hcl 2% Oph Soln 10 Ml Btl) 1 drops OPB TID JACKELIN Stop: 02/18/25 21:09 Last Admin: 01/20/25 14:38 Dose: 1 drops Documented By: Admin: 01/20/25 08:03 Dose: 1 drops Documented By: Admin: 01/19/25 21:57 Dose: 1 drops Documented By: TKB Enoxaparin Sodium (Enoxaparin Inj 40 Mg/0.4 Ml Syr) 40 mg SQ Q24H JACKELIN Stop: 02/19/25 08:59 Last Admin: 01/20/25 08:03 Dose: 40 mg Documented By: HRB Miscellaneous (Netarsudil-Latanoprost [Rocklatan] 0.02-0.005 % Drops~Order Awaiting Action) 1 each N/A QS JACKELIN Stop: 02/19/25 00:00 Last Admin: 01/20/25 16:08 Dose: Not Given Documented By: Admin: 01/20/25 08:10 Dose: Not Given Documented By: Admin: 01/19/25 23:04 Dose: Not Given Documented By: TKB Quetiapine Fumarate (Quetiapine Fumarate 25 Mg Tablet) 25 mg PO HS JACKELIN Stop: 02/18/25 21:09 Last Admin: 01/19/25 21:57 Dose: 25 mg Documented By: TKB Discontinued Medications Sodium Chloride (Nss) 1,000 mls @ 999 mls/hr IV .[id number] ONE Stop: 01/19/25 16:33 Last Infusion: 01/19/25 17:23 Dose: Infused Documented By: Admin: 01/19/25 16:20 Dose: 999 mls/hr Documented By: ESSIE Sodium Chloride (Nss) 1,000 mls @ 80 mls/hr IV .[id number] JACKELIN Stop: 01/20/25 06:29 Last Infusion: 01/20/25 06:20 Dose: Infused Documented By: Admin: 01/19/25 18:20 Dose: 80 mls/hr Documented By: ESSIE Imaging Data Radiologist's Impression: Chest X-Ray 01/19/25 14:20 XR chest 1V portable CLINICAL HISTORY: weakness mental status change COMPARISON STUDY: 05/13/2023 FINDINGS: Single view of the chest demonstrates no significant interval change and no acute cardiopulmonary process is identified. Is no airspace opacity or pleural effusion. There is a large pleural plaque adjacent to the left axilla contains calcification. Heart size and pulmonary vascularity are unremarkable. There are pronounced degenerative changes at the acromioclavicular joints bilaterally. IMPRESSION: Stable exam; no acute process. Large left-sided pleural plaque redemonstrated. ACT 112: Negative or not required by law. Electronically signed by: Martha Hurd M.D. 01/19/2025 2:[address] 01/19/25 15:33 Clinical history: Fall Technique: Axial computed tomography images were obtained of the cervical spine without intravenous contrast. Sagittal and coronal reconstructions were obtained Findings: No definite fracture is identified. There are apparent Schmorl's nodes at C5-6 and C6-7. No listhesis is seen. No focal osseous lesion is evident. There is atlantoaxial osteoarthritis. At C2-3, no disc herniation is identified. There is no spinal stenosis. The neural foramen are patent At C3-4, there is a mild disc bulge. There is no spinal stenosis. The neural foramen are patent At C4-5, there is a mild disc bulge. There is no spinal stenosis. The neural foramen are patent At C5-6, there is spinal stenosis due to a disc bulge and a central disc protrusion. There is right neural foramen narrowing that may affect the right C6 nerve root At C6-7, there is a disc bulge without spinal stenosis. The neural foramen are patent At C7-T1,no disc herniation is identified. There is no spinal stenosis. The neural foramen are patent The lung apices appear clear. The visualized soft tissues of the neck appear unremarkable. No foreign body is seen Impression: 1. No definite cervical spine fracture 2. Spinal stenosis at C5-6 3. Right C5-6 neural foramen narrowing that may affect the right C6 nerve root Electronically signed by Abdelrahman Flores 01-19-2025 4:[address] 01/19/25 15:33 Clinical History: Fall Technique: Axial computed tomography images were obtained of the brain without intravenous contrast. Comparison is made to the prior CT dated 05/13/2023 Findings: There is unchanged cerebral atrophy, within expected limits for the patient's age. Areas of decreased attenuation are seen within the periventricular white matter, likely representing chronic small vessel ischemic disease. There is no definite sign of acute or old infarction. No intracranial hemorrhage is evident. No definite mass lesion is seen on this noncontrast examination. There is no midline shift or other form of herniation. No hydrocephalus is seen. No fracture is identified. The orbits and the visualized paranasal sinuses appear unremarkable. There is new partial opacification of the right mastoid air cells Impression: 1. Cerebral atrophy and chronic small vessel ischemic disease 2. Partial opacification of the right mastoid air cells, which may be due to inflammatory mastoiditis Electronically signed by Abdelrahman Flores 01-19-2025 4:31 PM Discharge Plan Visit Data Chief Complaint: Illness Stated Complaint: SIGNIFICANT DECLINE/DEMENTIA, HUNCHED OVER/TALKING ED Provider: Tami Pollard Discharge Problem: Altered mental status, Somnolence, At risk for polypharmacy Patient Disposition: Admitted As Inpatient Discharge Instructions Interventions: ED Discharge Assessment Last Done: 01/19/25 20:47 Discharge Problem: Altered mental status Qualifiers: Altered mental status type: somnolence Qualified Code(s): R40.0 - Somnolence
--- NOTE | 2025-01-19 19:46 | Billing Data ---
Date of Service January 19, 2025 Coding Level of Care Code 95673 INT INP/OBS CARE
[2025-01-19] MEDS ORDERED: ACETAMINOPHEN 325 MG TAB PO PRN (21:16)
[2025-01-19] MEDS: QUEtiapine FUMARATE 25 MG TABLET PO SCH (21:57)
[2025-01-19] MEDS: DORZOLAMIDE HCL 2% OPH SOLN 10 ML BTL OPB SCH (21:57)
--- NOTE | 2025-01-20 05:42 | Electrocardiogram Report ---
Test Reason : Blood Pressure : */* mmHG Vent. Rate : 66 BPM Atrial Rate : 66 BPM P-R Int : 140 ms QRS Dur : 78 ms QT Int : 398 ms P-R-T Axes : 9 25 60 degrees QTcB Int : 417 ms Normal sinus rhythm Normal ECG When compared with ECG of 13-May-2023 13:40, No significant change was found Confirmed by Kodi Peña ([id number]) on 01/20/2025 5:42:05 AM Referred By: State [place] of Confirmed By: Kodi Peña
[2025-01-20 07:34] LABS: Basophils # (auto) 0.06 K/uL (0.00-0.20); Basophils % (auto) 1.3 %; Eosinophils # (auto) 0.19 K/uL (0.00-0.50); Hematocrit (blood only) 39.3 % (42.0-52.0); Hemoglobin 12.8 g/dl (14.0-18.0); Immature Granulocytes # (auto) 0.01 K/uL (0.01-0.20); Immature Granulocytes % (auto) 0.2 %; Lymphocytes # (auto) 1.72 K/uL (1.20-3.40); Mean Corpuscular Hemoglobin 29.1 pg (25.0-34.0); Mean Corpuscular Hgb Conc 32.6 g/dL (32.0-36.0); Mean Corpuscular Volume 89.3 fL (80.0-100.0); Mean Platelet Volume 10.5 fL (9.4-12.4); Monocytes # (auto) 0.48 K/uL (0.11-0.59); Neutrophils # (auto) 2.32 K/uL (1.40-6.50); Neutrophils % (auto) 48.5 %; Platelet Count 271 K/uL (130-400); RDW Coefficient of Variation 12.7 % (11.5-14.5); RDW Standard Deviation 41.9 fL (36.4-46.3); White Blood Count 4.78 K/ul (4.8-10.8)
[2025-01-20 07:38] LABS: BUN Creatinine Ratio 17.3 (10-20); Calcium 8.4 mg/dl (8.6-10.3); Potassium 4.1 mmol/L (3.5-5.1)
[2025-01-20 07:44] VITALS: TEMP 97.9
[2025-01-20] MEDS: ENOXAPARIN INJ 40 MG/0.4 ML SYR SQ SCH (08:03)
--- NOTE | 2025-01-20 11:47 | Discharge Summary ---
Date of Service January 21, 2025 Admission HPI Per Admitting Provider 79 year old male with a past medical history of Lewy body dementia,HTN presenting with increased somnolence, AMS. History from son and daughter at bedside. Lives at [place]. Normally relativity independent with ADLs. Last week increased trazodone from 25mg qHS to 100mg qHH, Seroquel from 50mg BID to 100mg BID and adding doxepin. Since then has been more confused. Sleeping more starting yesterday. ?unwitnessed fall yesterday evening. When daughter went to see him today and he was hard to arouse, wanted to continue to sleep which prompted them to come in. ED course Significant for: CMP, CBC, trop, TSH, UA unremarkable, Head CT without acute pathology. S/p 1000mL IVF in the ED Admission Exam Per Admitting Provider Constitutional: well-appearing, no acute distress HEENT: NCAT, no conjunctival injection CV: regular rhythm, no murmur appreciated, extremities well-perfused Resp: CTABL, no wheezes/rales/rhonchi appreciated, no increased work of breathing GI: soft, nondistended, nontender MSK: no gross deformities appreciated Skin: warm, dry, no rash appreciated Neuro: alert, oriented, no focal neurologic deficit appreciated- moving all extremities Principal Diagnosis Polypharmacy / Medication side effect Discharge Exam Constitutional: well-appearing, no acute distress HEENT: NCAT, no conjunctival injection CV: regular rhythm, no murmur appreciated, extremities well-perfused Resp: CTABL, no wheezes/rales/rhonchi appreciated, no increased work of breathing GI: soft, nondistended, nontender MSK: no gross deformities appreciated Skin: warm, dry, no rash appreciated Neuro: alert, answering questions with clear speech, confused Discharge Data Allergies Allergy/AdvReac Type Severity Reaction Status Date / Time ibuprofen [From Motrin] Allergy Unknown Verified 09/24/24 10:10 latex Allergy Unknown Verified 09/24/24 10:10 Consultations 01/19/25 17:04 ED Decision to Admit Stat Ordered Studies 01/19/25 15:33 CT cervical spine wo con Stat CT head/brain wo con Stat Hospital Course (1) Altered mental status: (2) Somnolence: (3) Dementia with behavioral disturbance: Plan 79 year old male with a past medical history of Lewy body dementia presenting with increased confusion and somnolence. # Delirium in the setting of dementia - Patient much more awake today and closer to baseline confusion, per patient's daughter - Labs unremarkable, Head CT without acute pathology - Quick improvement makes it more likely that sxs were likely related to polypharmacy rather than other cause - Continue to encourage PO nutrition and hydration now that patient is more awake - Discharge back to [place] #Abnormal Head CT - ?reading of inflammatory mastosis on Head CT-> clinically without pain swelling over mastoid, afebrile, no leucocytosis - low suspicious for true infection at this point - Continue to monitor #DM2 - diet controlled Total Time Total Time Spent Total Time Spent (In Minutes): As per attending attestation. Discharge Plan Discharge Items Patient Disposition: Personal Skilled Nursing Reason For Visit: AMS Discharge Diagnosis: Medication adverse effect Activity: Per Instructions section Non-emergency contact: Primary Care Provider Call non-emergency contact if: your symptoms worsen and your temperature is above 101.5 Follow-up/Referrals: Jarred Cortes [Primary Care Provider] - 01/27/25 2:30 pm Diet: Carb Consistent or DM2 Addtl Attending Provider Instructions: You were admitted to the hospital after noting you were more confused and sleepy. After we ran testing and monitored, we determined that this was more l ikely due to side effects from your medications that were recently increased. Given that you are back (or very close to) your baseline, we will be discharging you today. We advise you to stop taking Doxepin and Trazodone until you are able to follow up with your primary care physician to address this, and we also advise you to decrease your Seroquel dose to 50 mg two times a day (morning and night) like you were using before this recent change in medication dosing. A discharge summary will be sent to your primary care physician (PCP) to ensure continuity of care. Please bring this discharge summary with you to your next office appointment so that your provider can review it at that time. At this time, you and your PCP can discuss the above mentioned medications and whether you would continue taking them or change dosing. Medications: Your medication list has been reviewed and reconciled upon discharge to ensure accuracy and continuity of care. An updated list of all your medications is included with your hospital discharge paperwork. Please review this list closely, and make note of any changes. Take your medications as instructed; do not skip a dose of your medicines. Make sure all of your doctors know every medicine you are taking (including fokj-xeu-oiinrog medicines, vitamins, and supplements). Call your primary care provider before taking any new medicines (including over- the-counter medicines, vitamins, and supplements), because some of these may interact with your current medications, or may make your symptoms worse. Tell your primary care provider if you cannot afford your medications. CONTACT YOUR PRIMARY CARE PROVIDER if you experience any of the following: Worsening of symptoms Fever, chills, or fatigue Difficulty following your treatment plan, or difficulty taking medications CALL 911 OR GO TO THE EMERGENCY DEPARTMENT if you experience any of the following: Sudden, severe abdominal pain or nausea/vomiting Severe chest pain, or chest pain that radiates (moves) to your jaw or arm Sudden, severe shortness of breath or difficulty breathing Thank you for allowing us to participate in your care. Pending Studies at Discharge: No Stand-Alone Forms: My [employer], Smoking Cessation Skilled Items Patient informed of condition?: Yes DNR: Yes Discharge Level of Care: Other Communicable Disease: No Discharge Prognosis: Stable Lines: None Urinary Catheter: No Medications and DC Order Prescriptions: Continued (DME) syringe with needle 1 mL 25 gauge x 1" syringe See Rx Instructions .ROUTE .MEDSUPPLY Qty: 100 4RF Rx Instructions: As directed Calcium 600 with Vitamin D3 600 mg-10 mcg (400 unit) tablet,chewable PO melatonin 3 mg capsule 3 mg PO HS PRN quetiapine 50 mg tablet 50 mg PO BID Rocklatan 0.02-0.005 % drops 1 drp ophthalmic (eye) DAILY acetaminophen 325 mg capsule 325 mg PO QID PRN cetirizine 10 mg tablet 10 mg PO DAILY PRN dorzolamide 2 % drops 1 drp OPB TID Discontinued doxepin 3 mg tablet 3 mg PO .qhs Qty: 30 2RF Rx Instructions: . trazodone 100 mg tablet 100 mg PO .qhs Qty: 30 2RF Rx Instructions: . Discharge Orders: Discharge Order (Routine); Ordered 01/21/25 Ordered By: Clarita Quintanilla Admission Data Admit Date/Time: 01/19/25 17:43 Attending Provider: Joaquin Guerrier Admit Provider: Aurelia Nicole Primary Care Provider: Jarred Cortes Other Providers: Joaquin Guerrier Other Interventions: Discharge Summary Assessment (RN) Last Done: 01/21/25 12:16 Supervising Physician Co-Signing Physician Notes I personally examined the patient and verified all saenz points of history and exam, discussed case, and agree with decision making with Dr Quintanilla resting in bed, no distress. updated PCP on dc and plans moving forward. Vitals noted, in general he is resting comfortably and in no significant distress. HEENT normocephalic atraumatic mucous membranes moist. Breathing unlabored no accessory muscle use good effort. Skin without rashes pallor or icterus. Neuro without focal deficits. Confusion/somnolencepolypharmacy relatedfortunately largely med side effect maybe mild mild delirium superimposed on dementia rather than dominant delirium picture as concerned. stable for return to [facility]. seroquel and prior dosing hold stop trazodone/doxepin. PCP f/u DVT prophylaxisLovenox Resident Activity Tracking Resident Involvement: Resident Care Provided Care Provided: Adult Hospital Medicine
--- NOTE | 2025-01-20 18:01 | Hospitalist Progress Note ---
Date of Service January 20, 2025 Assessment & Plan (1) Altered mental status: (2) Somnolence: (3) Dementia with behavioral disturbance: Plan 79 year old male with a past medical history of Lewy body dementia presenting with increased confusion and somnolence. # Delirium in the setting of dementia - Patient much more awake today and closer to baseline confusion, per patient's daughter - Labs unremarkable, Head CT without acute pathology - Overnight improvement makes it more likely that sxs were likely related to polypharmacy rather than other cause - Continue to encourage PO nutrition and hydration now that patient is more awake - PT/OT consulted; may discharge back to [place] once coordinated (?tomorrow) #Abnormal Head CT - ?reading of inflammatory mastosis on Head CT-> clinically without pain swelling over mastoid, afebrile, no leucocytosis - low suspicious for true infection at this point - Continue to monitor #DM2 - diet controlled Admission and Anticipated Discharge Date Admission Date: January 19, 2025 Supervising Physician Co-Signing Physician Notes I personally examined the patient and verified all saenz points of history and exam, discussed case, and agree with decision making with Dr Quintanilla much more awake and alert - still no meaningful HPI or ROS but talkative. dtr notes not quite back to baseline - still some hallucinations and tremors - but far closer than expected. Vitals noted, in general he is fairly sleepy but awakens and talks some does not appear to be in any significant distress. HEENT normocephalic atraumatic mucous membranes moist. Breathing unlabored no accessory muscle use good effort. Skin without rashes pallor or icterus. Neuro without focal deficits. Confusion/somnolencepolypharmacy relatedfortunately largely med side effect maybe mild mild delirium superimposed on dementia rather than dominant delirium picture as concerned. should be able to return to [facility]. otherwise as above. dtr present and answered all questions to the best of my ability and to her satisfaction. DVT prophylaxisLovenox Subjective More awake today. No overnight events. Feeling well. Physical Exam Physical Exam: Constitutional: well-appearing, no acute distress HEENT: NCAT, no conjunctival injection CV: regular rhythm, no murmur appreciated, extremities well-perfused Resp: CTABL, no wheezes/rales/rhonchi appreciated, no increased work of breathing GI: soft, nondistended, nontender MSK: no gross deformities appreciated Skin: warm, dry, no rash appreciated Neuro: alert, oriented, no focal neurologic deficit appreciated- moving all extremities Results & Data Results & Data Vital Signs (Past 12 Hours) Vital Signs Temp Pulse Resp BP Pulse Ox O2 Del Method 01/20/25 15:15 36.6 C 76 16 151/79 H 96 Room Air 01/20/25 07:43 36.6 C 60 16 160/77 H 96 Room Air
--- NOTE | 2025-01-20 18:43 | Billing Data ---
Date of Service January 20, 2025 Coding Level of Care Code 69203 SUB INP/OBS CARE MIN
[2025-01-20 20:08] VITALS: O2SAT 95
[2025-01-21 07:56] VITALS: RESP 16
[2025-01-21 08:22] VITALS: BP 171/74; PULSE 77
--- NOTE | 2025-01-21 12:57 | Billing Data ---
Date of Service January 21, 2025 Coding Level of Care Code 85036 IN/OBS DISCH 30 MIN/LESS
== END 2025-01-21 12:52 | disposition home or self-care (01) ==
LOC: ED 13:52 → INTOOBSV 17:43 → 3W 17:43